=== PATIENT | female | born 1930 | race Asian ===

== ENCOUNTER 2016-04-30 10:00 | Outpatient (CLI) | payer MEDICARE, OTHER, MEDICAID | END 2016-04-30 10:01 | disposition home or self-care (01) | DX: G13.8 Systemic atrophy primarily affecting central nervous system in other diseases classified elsewhere (principal); R53.1 Weakness; Z91.81 History of falling; F33.9 Major depressive disorder, recurrent, unspecified; N39.41 Urge incontinence; I10 Essential (primary) hypertension; Z99.3 Dependence on wheelchair; M25.512 Pain in left shoulder; Z51.5 Encounter for palliative care ==

== ENCOUNTER 2016-05-19 | Outpatient (CLI) | payer MEDICARE, MEDICAID | END 2016-05-19 14:46 | disposition home or self-care (01) ==

== ENCOUNTER 2016-06-23 10:30 | Outpatient (CLI) | payer MEDICARE, MEDICAID | END 2016-06-23 10:31 | disposition home or self-care (01) | DX: Z51.5 Encounter for palliative care (principal); F33.9 Major depressive disorder, recurrent, unspecified; G13.8 Systemic atrophy primarily affecting central nervous system in other diseases classified elsewhere; F03.91 Unspecified dementia, unspecified severity, with behavioral disturbance; M25.512 Pain in left shoulder; H91.90 Unspecified hearing loss, unspecified ear; F41.9 Anxiety disorder, unspecified; R60.9 Edema, unspecified; Z99.3 Dependence on wheelchair; Z66 Do not resuscitate ==

== ENCOUNTER 2016-07-21 10:30 | Outpatient (CLI) | payer MEDICARE, MEDICAID | END 2016-07-21 10:31 | disposition home or self-care (01) | DX: Z51.5 Encounter for palliative care (principal); G13.8 Systemic atrophy primarily affecting central nervous system in other diseases classified elsewhere; F32.9 Major depressive disorder, single episode, unspecified; Z99.3 Dependence on wheelchair; M62.81 Muscle weakness (generalized); M25.512 Pain in left shoulder; H91.90 Unspecified hearing loss, unspecified ear; R05 Cough; F41.9 Anxiety disorder, unspecified; Z66 Do not resuscitate ==

== ENCOUNTER 2016-08-25 10:00 | Outpatient (CLI) | payer MEDICARE, MEDICAID ==
--- NOTE | 2016-08-26 06:38 | CONSULTATION NOTE ---
DATE OF CONSULTATION: 08/25/2016 00:00:00 REQUESTING PROVIDER: Mary Lewis PA-C. TIME OF VISIT: 1010:45. TOPIC: Followup palliative care consult. Thank you, Mary Lewis PA-C, for asking the palliative care consult service to be involved in the care your patient. I am following her related to her depression. She is seen in her home setting, [facility] is [facility] intermediate facility. BRIEF HISTORY OF PRESENT ILLNESS UPDATE: This is an 86-year-old [place] woman who I am seeing relate d to her multisystem atrophy and major depressive disorder. She is wheelchair bound, has limited rang e of motion, particularly in her left shoulder from a past acute injury. She does have lower extremit y weakness, is unable to transfer without maximum assistance. 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 She does have a scooter, so she is able to maneuver independently around the facility. The patient, for the last several days, had increasing symptoms of a viral illness. This has been igor rly rampant in the facility. She does have a cough that is coarse, but nonproductive. It is not impac ting her sleep or impacting her appetite. She has had some intermittent bloody noses with this. She i s using Robitussin with good control. It looks like she has been taking that about 3 times a day. She does not have any fever or chills, just some fatigue. As far as the patient's symptoms of depression, she continues with the complaints about her current s ituation, which of course indeed are valid, living in a prison. She has recently been changed a s far as her room, which had improved things some. She is being supported by the palliative care chap bhavana, as well as a very committed weekly visit from a volunteer, Marie. The patient is somewhat encou raged. She has been working with her [facility] caser. Her perception is she is on a wait ing list at [facility], [facility], but is unclear about the details regardi ng this. SYMPTOM BURDEN: Continues with left shoulder discomfort. Does get exacerbated with transfers. She has used Tylenol intermittently. She is no longer receiving physical therapy, but she does go to exercis e class. She has fluctuating fatigue. Her appetite remains good. She does feel some of breath with he r increased cough. Continues to perceive her overall quality of life as quite poor. CODE STATUS: THE PATIENT IS A DO NOT ATTEMPT RESUSCITATION, COMFORT MEASURES ONLY, ANTIBIOTICS FOR FO CUS OF COMFORT, AND NO MEDICAL TUBE FEEDINGS. BRIEF SOCIAL HISTORY: The patient is now a permanent resident here at the facility. She is coming on a year come this summer. It has continued to be a source of much distress for her. She does have some friends that visit her, but no family support and is estranged from her daughter. REVIEW OF SYSTEMS HEENT: Continues with mild hearing loss, wears her glasses. Denies swallowing or choking. CARDIOVASCULAR: No chest pain. RESPIRATORY: Now with moist cough. It is controlled per her report with the Robitussin. GASTROINTESTINAL: Does report some constipation. She is anxious for me to put any more aggressive bow el program in. I did remind her, she does have a house bowel program and can ask for some medication as needed. GENITOURINARY: She is continent, but is dependent on staff to toilet her. MUSCULOSKELETAL: As noted above. INTEGUMENTARY: Intermittent skin issues, currently no complaints. NEUROLOGIC: Alert and oriented x3. Her voice is somewhat soft today, more difficult to hear. Unclear if this is related to her viral illness or her disease process. PSYCHIATRIC: Underlying depression and intermittent anxiety. ENDOCRINE: No history of hypothyroidism or diabetes. HEMATOLOGIC/IMMUNOLOGIC: Now presents with a viral upper respiratory infection. PHYSICAL EXAMINATION GENERAL APPEARANCE: She does appear slightly fatigued and somewhat more pale than her norm. She is in termittently making good eye contact. I do have someone with me today. I am unclear if this is interf ering with her willingness to be open. There was no tearfulness during our visit. EYES: Slight periorbital edema. ENT: She does have a few missing teeth. NECK: Trachea is midline. No lymphadenopathy noted. RESPIRATORY: Her breath sounds are diminished, but clear, though she does have a moist cough noted. VITAL SIGNS: Her temperature is 97.4, O2 saturation 99%, pulse is 74, blood pressure 112/80. ABDOMEN: Rounded and soft, nontender to palpation. She does have bowel tones. SKIN: No lower extremity edema. 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 EXTREMITIES: She is unable to move without maximum assist her right leg. Left with minor assist. She does have limited range of motion and pain in her left shoulder. PALLIATIVE CARE DISCUSSION: Who is present, myself, Stephania SMART, and the patient. Did review her current stressors and concerns. She has met with Jessica recently and I will follow up with her as far as a long-term plan if the patient is considering moving or not. She did seem, despite feeling poorly , a little bit more positive today. She had really much enjoyed Marie's visit on Tuesday. She is going to be on vacation for a couple of months and so introduced a back-up volunteer who has a minda shelly le dog named Holger. She seems somewhat fascinated with this and enjoyed their time and picnic in the courtyard. IMPRESSION: This is a complex 86-year-old Bhut[place] woman with multisystem atrophy who is somewhat sta ble in her decline, but remains dependent. She presents today with the sequela of a viral illness. Do es seem to be improving. She does have major depressive disorder, this appears stable at this time. RECOMMENDATIONS/COUNSELING DONE 1. Multisystem atrophy. She has not been using her lift chair. She does need maximum assist with this , I had encouraged her to off load her pressure points and get into the chair a couple of times a day . She does have many barriers related to this, including needing to ask for help. 2. Major depressive disorder without any psychotic behaviors. She has been adherent to her mirtazapin e and compliant with the plan. She is using her support people and attempts are being made to break u p her isolation. 3. Advanced care planning. The patient has a POLST in place. Will follow up with her outpatient case manager to see what currently is in the works for meterman planning. 4. Upper respiratory viral illness. The patient does seem to be improving. Lemuel is working for symptom management. She does appear somewhat dry. I did encourage her to push fluids a little bit mor e aggressively, particularly in light of her current illness. TIME SPENT: 45 minutes with greater than 50% of this done in counseling and coordination of care, fol lowup with facility staff, and anticipatory guidance. Her weight today was 160.2. JOB #: [id number] EXT JOB #:[id number]
== END 2016-08-25 10:01 | disposition home or self-care (01) ==
LOC: PC 10:00
PROVIDERS: ATTEND Nurse Practitioner Adult Health
DX: Z51.5 Encounter for palliative care (principal); G13.8 Systemic atrophy primarily affecting central nervous system in other diseases classified elsewhere; F32.9 Major depressive disorder, single episode, unspecified; J06.9 Acute upper respiratory infection, unspecified; Z99.3 Dependence on wheelchair; R53.1 Weakness; R04.0 Epistaxis; Z66 Do not resuscitate; K59.00 Constipation, unspecified; F41.9 Anxiety disorder, unspecified
CPT/HCPCS: 99310

== ENCOUNTER 2016-09-30 08:00 | Outpatient (CLI) | payer MEDICARE, MEDICAID ==
[2016-10-01 14:59] LABS: BASOPHILS # (AUTO) 0.1 10^3/uL (0.0-0.1); BASOPHILS % (AUTO) 0.9 %; EOSINOPHILS # (AUTO) 0.5 10^3/uL (0.0-0.7); EOSINOPHILS % (AUTO) 5.9 %; HCT - HEMATOCRIT 33.6 % (37.0-47.0); LYMPHOCYTES # (AUTO) 1.3 10^3/uL (1.5-3.5); LYMPHOCYTES % (AUTO) 15.7 %; MEAN CORPUSCULAR HEMOGLOBIN 28.3 pg (27.0-31.0); MEAN CORPUSCULAR HGB CONC 32.8 g/dL (32.0-36.0); MEAN CORPUSCULAR VOLUME 86.4 fL (81.0-99.0); MEAN PLATELET VOLUME 8.9 fL (7.9-10.8); MONOCYTES # (AUTO) 0.5 10^3/uL (0.0-1.0); MONOCYTES % (AUTO) 5.5 %; NEUTROPHILS # (AUTO) 6.2 10^3/uL (1.5-6.6); RED BLOOD COUNT 3.89 10^6/uL (4.20-5.40); RED CELL DISTRIBUTION WIDTH 14.5 % (12.0-15.0); UNCORRECTED WHITE BLOOD COUNT 8.6 x10^3/uL; WHITE BLOOD COUNT 8.6 x10^3/uL (4.8-10.8)
[2016-10-01 15:13] LABS: ALBUMIN/GLOBULIN RATIO 1.1 (1.0-2.2); BILIRUBIN,TOTAL 0.4 mg/dL (0.2-1.0); BUN - BLOOD UREA NITROGEN 44 mg/dL (6-20); CALCIUM 9.7 mg/dL (8.5-10.3); CARBON DIOXIDE - CO2 25 mmol/L (21-32); CHLORIDE 103 mmol/L (101-111); CHOL/HDL RATIO 5.1 (<4.4); CHOLESTEROL 216 mg/dL; CREATININE 1.8 mg/dL (0.4-1.0); GFR - MDRD 27 (>89); GLUCOSE 189 mg/dL (70-100); HDL CHOLESTEROL 42 mg/dL; LDL/HDL RATIO 2.5 (<4.4); POTASSIUM 4.6 mmol/L (3.5-5.0); SODIUM 138 mmol/L (135-145); TOTAL PROTEIN 7.7 g/dL (6.7-8.2); TRIGLYCERIDES 341 mg/dL; VLDL CHOLESTEROL 68 mg/dL
[2016-10-02 14:43] LABS: HEMOGLOBIN A1C 0.51 g/dL
== END 2016-09-30 23:59 | disposition home or self-care (01) ==
LOC: LAB.R 08:00
PROVIDERS: ATTEND Physician Assistant Medical
DX: R79.89 Other specified abnormal findings of blood chemistry (principal); E78.5 Hyperlipidemia, unspecified; R68.89 Other general symptoms and signs; R73.9 Hyperglycemia, unspecified
CPT/HCPCS: 80053; 80061; 83036; 85025

== ENCOUNTER 2016-10-13 10:30 | Outpatient (CLI) | payer MEDICARE, MEDICAID ==
--- NOTE | 2016-10-13 17:27 | PROVIDER PROGRESS NOTE ---
Palliative Care Follow Up - Referral Referring Provider: Mary Lewis PA-C Time of Visit: 10:30-11:15 Referral setting: Long Term Facility - Information Sources Records Reviewed: RN notes reviewed, Old records reviewed, Other (Case Conference notes from [employer]) Exam limitations: Clinical condition (remains fairly perseverated in "her story ", does have some health literacy issues regarding culture/language barriers) - History of Present Illness Update Brief HPI Update: This is an 86 year old filipina woman who presents with major depressive disorder, now with a suicidal gesture. She had wrapped the cord from window blinds around her neck, more per her report as an act of desperation "I am just tired of living" but was found by staff. Has had not further thoughts of action , or attempts noted. She continues to be unhappy at [facility], feels it is unending, and though has actually fairly robust support given what is available , dislikes being dependent and feels very lonely and isolated. Case conference was done, Palliative Care [employer] attended as well as casework Jessica Hendricks and Daya Batista her outreach mental health counselor who has been seeing her on regular basis and [facility] clinical staff. She still has multisystem atrophy, without significant progression some increase in lower extremity weakness, has been wheelchair bound for several year , more difficult transfers. Fine motor movements of hands more difficult. No trouble with swallowing, no incontinence other than if has to wait to long to toilet. She reports continues left shoulder discomfort, does get some relief with intermittent tylenol. Am concerned with labs, if not receiving great benefit from Mobic, will trial off and use alternative. She does perceive she has increase RLS symptoms as well. Social History - Living Situation Living arrangement: long-term Living Situation: Other (staff; patient has been there over a year, continues to have problems with adjusting, finding it very difficult) Medications/Allergies - Medications Home Medications: Ambulatory Orders Medication Instructions Recorded Confirmed Cholecalciferol (Vitamin D3) 2,000 unit PO DAILY 01/17/15 10/13/16 [Vitamin D-3] Losartan [Cozaar] 100 mg PO DAILY 01/17/15 10/13/16 Multivit-Min/FA/Lycopen/Lutein 1 each PO DAILY 01/17/15 10/13/16 [Centrum Silver Tablet] Triamterene/Hydrochlorothiazid 1 tab PO DAILY 04/29/15 10/13/16 [Maxzide 37.5 mg-25 mg Tablet] Acetaminophen 1,000 mg PO Q6HR PRN MDD 3000 mg 10/13/16 10/13/16 Calcium Carbonate [Tums (Calcium 500 mg PO TID PRN 10/13/16 10/13/16 Carbonate 500mg)] Cetirizine HCl 10 mg PO BID 10/13/16 10/13/16 Dry Eye Relief Drops 2 drops TOP BID 10/13/16 House Bowel Program 1 tab PO PRN 10/13/16 Meloxicam [Mobic] 7.5 mg PO BID 10/13/16 10/13/16 Mirtazapine 30 mg PO QPM 10/13/16 10/13/16 Pramipexole Di-HCl [Mirapex] 0.125 mg PO QPM 10/13/16 10/13/16 guaiFENesin/DEXTROMETHORPHAN 10 mg PO Q4HR PRN 10/13/16 10/13/16 [Robitussin Dm] - Allergies Allergies/Adverse Reactions: Allergies Allergy/AdvReac Type Severity Reaction Status Date / Time alendronate sodium Allergy Unknown Unknown Verified 06/04/15 22:37 lisinopril Allergy Unknown Unknown Verified 06/04/15 22:36 codeine AdvReac Intermediate Emesis Verified 06/04/15 20:45 Review of Systems - Constitutional Constitutional: reports: Fatigue - Eyes Eyes: reports: Corrective lenses - Ears, Nose & Throat Ears, Nose & Throat: reports: Hearing loss (mild). denies: Nasal congestion, Dental pain - Cardiovascular Cariovascular: denies: Chest pain, Edema, Exertional dyspnea - Respiratory Respiratory: reports: Cough (occasional). denies: Wheezing, SOB at rest, SOB with exertion - Gastrointestinal Gastrointestinal: reports: Reflux/heartburn (occasional). denies: Constipation , Diarrhea, Black stools, Bloody stools - Genitourinary Genitourinary: denies: Dysuria, Frequency, Urgency, Incontinence - Musculoskeletal Musculoskeletal: reports: Muscle pain, Stiffness, Limited range of motion ( right shoulder, LE without purposeful movement) - Integumentary Integumentary: reports: Rash (reports has severe itching, improved powder helping), Dryness - Neurological Neurological: reports: Focal weakness, Numbness, Other (Wheelchair bound) - Psychiatric Psychiatric: reports: Depression, Anxiety. denies: Suicidal, Delusions, Hallucinations - Endocrine Endocrine: denies: Intolerance to cold, Intolerance to heat - Hematologic/Lymphatic Hematologic/Lymphatic: reports: Anemia. denies: Bruising, Lymphadenopathy, Recurrent infections - All Other Systems All Other Systems: reports: Reviewed and negative Physical Examination - Vital Signs Temperature: 97.6 C Pulse Rate: 78 Respiratory Rate: 18 O2 Saturation: 97 Blood Pressure: 112/72 - Physical Exam General Appearance: positive: No acute distress, Alert Eyes Bilateral: positive: Normal inspection ENT: positive: No signs of dehydration. negative: Oral lesions Neck: positive: Trachea midline Respiratory: positive: Breath sounds nml Cardiovascular: positive: Regular rate & rhythm Abdomen: positive: Non-tender, Nml bowel sounds Skin: negative: Puritis, Rash Extremities: negative: Pedal edema Neurologic/Psychiatric: positive: Oriented x3, Weakness, Depressed mood/affect ( no significant presentation increased in depressive symptoms) Palliative Care - POLST Patient has POLST: Yes POLST Status: DNR, Comfort Measures Pain: Pain worsening, Location (right shoulder, reports does respond to apap, using about once a day), Pattern (Having some increase in RLS symptoms, fluctuates) Drowsiness: None Nausea: None Anxiety: None Dyspnea: None Anorexia: None Insomnia: Sleeps well Constipation: No Feelings of wellbeing/Perceived Quality of Life: Worsening Performance Status: Patient remains dependent for transfers, ADLs, can use motorized w/c for mobility in facililty and does go to dining room. Does feed self. - Palliative Care Discussion: Discussion at length again regarding perceived quality of life, continues to admit she can be a "stubborn woman" stuck in her unhappiness. Denies currently suicidal ideation, no plan to further attempt, reviewed support team available and would be serious refection on them as well. Counseling on depression, willing to try another had many complaints about SSRI previously, will try another atypical, agreed to trial for two weeks before resists. Has been compliant with mirtazipine, has had weight gain so has been a barrier for acceptance, though was started on originally for weight loss too. Support team visiting regularly, able to acknowledge care issues most likely not to improve with limitations of setting. "I am tired of living", not tearful, voice modulated, made good eye contact, engaged in conversation and laughing appropriately when redirected. Results - Lab Results Lab results reviewed: Yes Lab and Imaging Results: HCT 33.6%;BUN 44;Creatine 1.8; GGFR 27 Impression and Recommendations - Palliative Care Impression: This is a 86 year old woman with major depressive disorder, now with suicidal gesture, improved mood per report. Patient with multiple complaints, focused on pain/depression/ and goals of care today. Recommendations/Counseling Done: 1. Major depressive disorder. After much discussion, weighing benefits and burdens, will discontinue mirtazipine and try venlafaxine XR, will see if impact on anxiety/perserveration. Patient in agreement after education, included in decision making to help with compliance. 2. Right shoulder pain. Given labs, will discontinue Mobic (omeprazole had been stopped at some point so no stomach protection), patient perception is APAP helpful, had wanted to schedule TID, but patient chose BID, will let me know if wants differently. 3. Pruitis. No rash observed, reports improved. 4. Advanced Care Planning, patient remains impatient for her decline, though pointed out if worsened would be more dependeent, currently has many support persons/activities. Message left regarding further follow up if alternative living being pursued. Thank you Mary Lewis for having the palliative care consult service involved in your patient's care, will continue to follow. Time Spent: 45 minutes with greater than 50% of done in counseling for depression and treatment, pain and anticipatory guidance.
== END 2016-10-13 10:31 | disposition home or self-care (01) ==
LOC: PC 10:30
PROVIDERS: ATTEND Nurse Practitioner Adult Health
DX: Z51.5 Encounter for palliative care (principal); F32.9 Major depressive disorder, single episode, unspecified; M25.511 Pain in right shoulder; L29.9 Pruritus, unspecified; R45.851 Suicidal ideations; G13.8 Systemic atrophy primarily affecting central nervous system in other diseases classified elsewhere; R53.1 Weakness; Z99.3 Dependence on wheelchair; R05 Cough; R12 Heartburn; M79.1 Myalgia; D64.9 Anemia, unspecified; Z66 Do not resuscitate
CPT/HCPCS: 99310

== ENCOUNTER 2016-10-21 15:40 | Outpatient (CLI) | payer MEDICARE, MEDICAID ==
--- NOTE | 2016-10-21 15:47 | PROVIDER PROGRESS NOTE ---
Palliative Care Follow Up - Referral Referring Provider: MARILU Valencia Time of Visit: 14:15 Referral setting: [facility] - Information Sources History obtained from: Patient Exam limitations: No limitations - History of Present Illness Update Brief HPI Update: This is an 86-year-old Stateless woman with multisystem atrophy and major depressive disorder. She is wheelchair bound with limited range of motion and lower extremity weakness, and is unable to transfer without maximum assistance. Earlier this week she complained of pain in right lower extremity, and radiographic imaging was negative. I followed up with her today to check on her lower extremities. She reports pain has lessened, but her feet feel shaky. Not numb, tingly or pins and needles. She normally sleeps well but sometimes can t sleep from what sounds like restless leg syndrome symptoms. She is currently taking pramipexole. The aids rub her feet with something, possibly Vicks vapo- rub, and she really enjoys this. She has repeatedly stated, in the past, that she is not happy in this facility, but today she did not bring this up. She does not feel any worsening or improvement of her mental outlook, but seemed introspective about her disease and current physical limitations, stating I miss everything I used to do, for instance, being able to get up and change the fan when she wants to. She stated at one point that sometimes she gets angry at herself about that (not being able to do what she used to). She values her independence and doesnt like having to depend on others. She spoke very positively about Jessica, her sausage mixer And Daya her counsellor, saying, I depend on them they are nice people. Jessica helps her with her handwriting, which is getting difficult for her. Her eyes lit up when I mentioned Neeru (Marie?) her volunteer, who should be returning from vacation this month. We spoke of how she came to live here with her [place] , arriving here on in 1964. They also lived in [place] for a time. Social History - Living Situation Living arrangement: skilled nursing Medications/Allergies - Medications Home Medications: Ambulatory Orders Medication Instructions Recorded Confirmed Cholecalciferol (Vitamin D3) 2,000 unit PO DAILY 01/17/15 10/21/16 [Vitamin D-3] Losartan [Cozaar] 100 mg PO DAILY 01/17/15 10/21/16 Multivit-Min/FA/Lycopen/Lutein 1 each PO DAILY 01/17/15 10/21/16 [Centrum Silver Tablet] Triamterene/Hydrochlorothiazid 1 tab PO DAILY 04/29/15 10/21/16 [Maxzide 37.5 mg-25 mg Tablet] Acetaminophen 1,000 mg PO BID MDD 3000 mg 10/13/16 10/21/16 Calcium Carbonate [Tums (Calcium 500 mg PO TID PRN 10/13/16 10/21/16 Carbonate 500mg)] Cetirizine HCl 10 mg PO BID 10/13/16 10/21/16 Dry Eye Relief Drops 2 drops TOP BID 10/13/16 10/21/16 House Bowel Program 1 tab PO PRN 10/13/16 Pramipexole Di-HCl [Mirapex] 0.125 mg PO QPM 10/13/16 10/21/16 guaiFENesin/DEXTROMETHORPHAN 10 mg PO Q4HR PRN 10/13/16 10/21/16 [Robitussin Dm] Venlafaxine ER [Effexor ER] 37.5 mg PO DAILY 10/21/16 10/21/16 - Allergies Allergies/Adverse Reactions: Allergies Allergy/AdvReac Type Severity Reaction Status Date / Time alendronate sodium Allergy Unknown Unknown Verified 06/04/15 22:37 lisinopril Allergy Unknown Unknown Verified 06/04/15 22:36 codeine AdvReac Intermediate Emesis Verified 06/04/15 20:45 Review of Systems - Cardiovascular Cariovascular: denies: Chest pain - Respiratory Respiratory: denies: Cough, SOB with exertion - Gastrointestinal Gastrointestinal: denies: Constipation - Genitourinary Genitourinary: denies: Dysuria - Musculoskeletal Musculoskeletal: reports: Muscle weakness (lower extremities) Physical Examination - Vital Signs Temperature: 97.4 C Pulse Rate: 83 O2 Saturation: 99 Blood Pressure: 132/68 - Physical Exam General Appearance: positive: No acute distress, Alert Eyes Bilateral: positive: EOMI, No lid inflammation, Conjunctivae nml ENT: positive: No signs of dehydration Neck: positive: Trachea midline Respiratory: positive: Chest non-tender, No respiratory distress, Breath sounds nml Cardiovascular: positive: Regular rate & rhythm Skin: positive: No symptoms Extremities: positive: Other (ankle edema +1) Neurologic/Psychiatric: positive: Oriented x3, CN's nml (2-12), Motor nml, Sensation nml, Mood/affect nml Palliative Care - POLST Patient has POLST: Yes POLST Status: Comfort Measures Pain: Pain unchanged Drowsiness: None Nausea: None Anxiety: None Dyspnea: None Anorexia: None Insomnia: Other Constipation: No Feelings of wellbeing/Perceived Quality of Life: No change Performance Status: Previous level of function prior to this episode: LE weakness, requires extensive help with transfers Current level of functioning: Some increased weakness in lower extremities; some improvement during the week. No complaints about shoulder pain today Palliative Care Performance Status: 50% - Palliative Care Discussion: Who is present: The patient and myself Surrogate decision maker: Natasha Espino Patient understanding of the illness: She understands multisystem atrophy has no cure and that she will get progressively weaker Most important goals: Retaining as much independence as possible Patient concerns: Shakiness and increased weakness in her feet. Losing her independence. Impression and Recommendations - Palliative Care Impression: This is a complex 86-year-old woman with multisystem atrophy who is gradually declining while retaining as much independence as she can. She also has major depressive disorder which appears stable with the current medication regimen. Recommendations/Counseling Done: 1. Pain/weakness R foot: Improved after a single acute episode of increased weakness this week. Monitor and consider increasing pramipexole if it reoccurs or RLS symptoms increase. 2. Major depressive disorder: Currently stable on venlafaxine 37.5 daily. Revisit in 2-3 weeks and titrate if indicated. She has a good support system in place in the facility and expresses gratitude for them. Provided encouragement and support. 3. Chronic shoulder pain: Adequately controlled at present with Tylenol extra strength four times a day as needed. Time Spent: 45 minutes with greater than 50% of this done in counseling and coordination of care, assessment of pain, and discussing goals of care and symptom management.
== END 2016-10-21 15:41 | disposition home or self-care (01) ==
LOC: PC 15:40
PROVIDERS: ATTEND Nurse Practitioner
DX: Z51.5 Encounter for palliative care (principal); M79.671 Pain in right foot; F32.9 Major depressive disorder, single episode, unspecified; G13.8 Systemic atrophy primarily affecting central nervous system in other diseases classified elsewhere; Z99.3 Dependence on wheelchair; M25.519 Pain in unspecified shoulder; R53.1 Weakness; Z66 Do not resuscitate
CPT/HCPCS: 99310

== ENCOUNTER → 2016-11-02 | Outpatient (CLI) | payer MEDICARE, MEDICAID ==
[2016-11-02 10:57] LABS: BASOPHILS # (AUTO) 0.1 10^3/uL (0.0-0.1); BASOPHILS % (AUTO) 0.7 %; EOSINOPHILS # (AUTO) 0.5 10^3/uL (0.0-0.7); EOSINOPHILS % (AUTO) 6.5 %; HCT - HEMATOCRIT 33.2 % (37.0-47.0); HGB - HEMOGLOBIN 10.9 g/dL (12.0-16.0); LYMPHOCYTES # (AUTO) 1.3 10^3/uL (1.5-3.5); LYMPHOCYTES % (AUTO) 15.6 %; MEAN CORPUSCULAR HEMOGLOBIN 28.3 pg (27.0-31.0); MEAN CORPUSCULAR HGB CONC 32.9 g/dL (32.0-36.0); MEAN CORPUSCULAR VOLUME 86.2 fL (81.0-99.0); MEAN PLATELET VOLUME 8.1 fL (7.9-10.8); MONOCYTES # (AUTO) 0.4 10^3/uL (0.0-1.0); MONOCYTES % (AUTO) 4.9 %; NEUTROPHILS % (AUTO) 72.3 %; RED BLOOD COUNT 3.85 10^6/uL (4.20-5.40); RED CELL DISTRIBUTION WIDTH 14.4 % (12.0-15.0); UNCORRECTED WHITE BLOOD COUNT 8.3 x10^3/uL; WHITE BLOOD COUNT 8.3 x10^3/uL (4.8-10.8)
[2016-11-02 11:17] LABS: IRON 53 ug/dL (28-170); TOTAL IRON BINDING CAPACITY 336 ug/dL (250-450); TRANSFERRIN 240 mg/dL (192-382)
[2016-11-02 11:33] LABS: FERRITIN 71.4 ng/mL (11.0-306.8)
== END ==
LOC: LAB.R 08:00
DX: D64.9 Anemia, unspecified (principal); R68.89 Other general symptoms and signs
CPT/HCPCS: 82607; 82728; 82746; 83540; 84466; 85025

== ENCOUNTER 2016-11-05 09:45 | Outpatient (CLI) | payer MEDICARE, MEDICAID ==
--- NOTE | 2016-11-05 17:47 | PROVIDER PROGRESS NOTE ---
Palliative Care Follow Up - Referral Referring Provider: Mary Lewis PA-C Time of Visit: [id number] Referral setting: Detention Facility Referral Reason: Depression - Information Sources Records Reviewed: RN notes reviewed History obtained from: Patient Exam limitations: No limitations - History of Present Illness Update Brief HPI Update: This is a 86 year old [place] woman who I have been following shelter for depression. She had a "suicidal gesture' related to her ongoing despair about her current living situation. 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 She is losing upper extremity strength as well, more fine motor in impact of ADLs. As a result, I did change her antidepressant from mirtazipine, to venalfaxine. Unfortunately this has impacted her sleep, I am not surprised as mirtazipine is helpful at night. She had an acute episode of LE leg pain, no trauma, no injury, as a result got an xray which was negative. She reports LE pain has improved, but describes symptoms of RLS with "jumpy" and sharp stabbing pains at night. Currently on exam was not wearing her brace on her RLE, she reports she is usually compliant with this. Her other main complaint is her left shoulder pain, limited range of motion, and achy feeling. Scheduling the BID APAP has not made any noticeable improvement. She complains of rash/pruritis upper back, had received benedryl cream order from PCP, but diffuse pink rash with scratch pope noted. Social History - Living Situation Living arrangement: half-way Support System: Patient has Palliative Care [facility] meeting weekly; Counselor Daya 2-3 times a month; [facility] outreach 2-3 times a month; volunteer from Palliative care 2-4 times a month. Estranged from daughter many years Medications/Allergies - Medications Home Medications: Ambulatory Orders Medication Instructions Recorded Confirmed Cholecalciferol (Vitamin D3) 2,000 unit PO DAILY 01/17/15 10/21/16 [Vitamin D-3] Losartan [Cozaar] 100 mg PO DAILY 01/17/15 10/21/16 Multivit-Min/FA/Lycopen/Lutein 1 each PO DAILY 01/17/15 10/21/16 [Centrum Silver Tablet] Triamterene/Hydrochlorothiazid 1 tab PO DAILY 04/29/15 10/21/16 [Maxzide 37.5 mg-25 mg Tablet] Acetaminophen 1,000 mg PO BID MDD 3000 mg 10/13/16 10/21/16 Calcium Carbonate [Tums (Calcium 500 mg PO TID PRN 10/13/16 10/21/16 Carbonate 500mg)] Cetirizine HCl 10 mg PO BID 10/13/16 10/21/16 Dry Eye Relief Drops 2 drops TOP BID 10/13/16 10/21/16 House Bowel Program 1 tab PO PRN 10/13/16 Pramipexole Di-HCl [Mirapex] 0.125 mg PO QPM 10/13/16 10/21/16 guaiFENesin/DEXTROMETHORPHAN 10 mg PO Q4HR PRN 10/13/16 10/21/16 [Robitussin Dm] Venlafaxine ER [Effexor ER] 37.5 mg PO DAILY 10/21/16 10/21/16 - Allergies Allergies/Adverse Reactions: Allergies Allergy/AdvReac Type Severity Reaction Status Date / Time alendronate sodium Allergy Unknown Unknown Verified 06/04/15 22:37 lisinopril Allergy Unknown Unknown Verified 06/04/15 22:36 codeine AdvReac Intermediate Emesis Verified 06/04/15 20:45 Review of Systems - Constitutional Constitutional: reports: Fatigue, Weakness - Eyes Eyes: reports: Corrective lenses - Ears, Nose & Throat Ears, Nose & Throat: reports: Hearing loss (mild) - Cardiovascular Cariovascular: denies: Palpitations, Chest pain, Edema, Orthopnea - Respiratory Respiratory: denies: Cough, Sputum production - Gastrointestinal Gastrointestinal: denies: Abdominal pain, Constipation, Nausea, Bloating - Genitourinary Genitourinary: denies: Incontinence (often has to weight to toilet though) - Musculoskeletal Musculoskeletal: reports: Muscle pain, Stiffness, Limited range of motion, Muscle weakness - Integumentary Integumentary: reports: Rash, Pruritis, Dryness - Neurological Neurological: reports: General weakness, Other (wheelchair bound; RLS exacerbated symptoms) - Psychiatric Psychiatric: reports: Depression (feels mood is not worsened; voice modulated good eye contact), Anxiety. denies: Suicidal, Delusions, Hallucinations - Endocrine Endocrine: reports: Other (no history diabetes or thyroid) - Hematologic/Lymphatic Hematologic/Lymphatic: reports: Anemia (has had recent labs) - All Other Systems All Other Systems: reports: Reviewed and negative Physical Examination - Vital Signs Temperature: 97.5 C Pulse Rate: 64 Respiratory Rate: 18 O2 Saturation: 99 Blood Pressure: 128/72 - Physical Exam General Appearance: positive: No acute distress Eyes Bilateral: positive: Normal inspection ENT: positive: ENT inspection nml, No signs of dehydration. negative: Oral lesions Neck: positive: No JVD, Trachea midline, Stiff neck Respiratory: positive: Breath sounds nml Cardiovascular: positive: Regular rate & rhythm Abdomen: positive: Nml bowel sounds, No distention Skin: positive: Dryness, Puritis, Rash Extremities: positive: No pedal edema Neurologic/Psychiatric: positive: Oriented x3, Mood/affect nml Palliative Care - POLST Patient has POLST: Yes POLST Status: DNR, Comfort Measures Pain: Pain worsening, Location (lower extremities; left shoulder) Drowsiness: Mild (1-3) Nausea: None Anxiety: None Dyspnea: None Anorexia: None (reports eating smaller portions) Insomnia: Sleeps poorly (decreased sleep with change of medications) Constipation: No Feelings of wellbeing/Perceived Quality of Life: No change Performance Status: Patient dependent for bathing, transfers to commode and toileting assist. Can feed self and call for help if needed - Palliative Care Discussion: Unfortunately staff had not notified Laurie of the change in plans so thought I had "forgot" last week. Showed her fax I sent, and called this am to let them know I was coming was not picked up. Reviewed again how to contact me, is unable to manipulate or answer her cell phone. She reports she is doing better, is more uncomfortable with leg/shoulder pain. Had her gratitude journal out, able to identify things that were positively going on for her. She appears a little more sedated on the medication with some fatigue, but otherwise tolerating well. Counseling and support provided regarding medication management of symptoms. Results - Lab Results Lab results reviewed: Yes Impression and Recommendations - Palliative Care Impression: This is a 86 year old woman, in a very difficult situation with depressed feelings regarding loss of independence and current living situation. She denies suicidality, worsening mood, and able to participate in exam with good eye contact, modulated voice, and appears to have an attitude of resignation today. Increase symptoms of RLS/insomnia, I suspect impacted by the change in medications. Recommendations/Counseling Done: 1. Restless Leg Syndrome. Will increase pramipexole to 0.25 mg at bedtime, may assist with sleep as well, since symptom that is keeping her from sleeping, will wait before adding another medication for sleep. 2. Rash, unknown etiology upper back. Will try tramcinolone topical to upper back rash 0.1% cream, make time limited of two weeks. 3. Left shoulder pain. Trialed Meloxicam with patient does not perceived helped , nor scheduled APAP, will leave for now. Discussed what most helpful, patient perceives massage. Agreed would try topical Voltaren then she agreed to three times a day. Will evaluate in a couple of weeks. 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 Patient currently on venlafexine 37.5 mg, having some mild sedation, will leave at current dosing for now, patients depressive symptoms appear stable and patient feels currently improved. Reviewed support receiving, has decided not to go to weekly mass for a while, found it to difficult to schedule around. Wrote in gratefulness journal. 5. Advanced care planning. POLST in place, continues to decline very slowly, current plan is to stay a SNF, open to changing setting. Time Spent: 45 minutes with greater than 50% done in counseling and addressing symptoms, coordination of care with clincial staff and team.
== END 2016-11-05 09:46 | disposition home or self-care (01) ==
LOC: PC 09:45
PROVIDERS: ATTEND Nurse Practitioner Adult Health
DX: Z51.5 Encounter for palliative care (principal); G13.8 Systemic atrophy primarily affecting central nervous system in other diseases classified elsewhere; G25.81 Restless legs syndrome; R21 Rash and other nonspecific skin eruption; M25.512 Pain in left shoulder; F32.9 Major depressive disorder, single episode, unspecified; Z99.3 Dependence on wheelchair; R53.1 Weakness; M79.1 Myalgia; D64.9 Anemia, unspecified; Z66 Do not resuscitate
CPT/HCPCS: 99310

== ENCOUNTER 2016-11-19 13:00 | Outpatient (CLI) | payer MEDICARE, MEDICAID ==
--- NOTE | 2016-11-19 15:12 | PROVIDER PROGRESS NOTE ---
Palliative Care Follow Up - Referral Referring Provider: Mary Lewis PA-C Time of Visit: 13:00 Referral setting: Senior Living Facility ([facility]) - Information Sources History obtained from: Patient, Caregiver (Nursing staff) Exam limitations: No limitations - History of Present Illness Update Brief HPI Update: This is an 86-year-old Syrian woman with multisystem atrophy and major depressive disorder. She is wheelchair bound with limited range of motion and lower extremity weakness, and is unable to transfer without maximum assistance. She has been followed by Palliative Care long-term for depression. Today as I entered her room her first words were, I want to , right now. She was in a despairing mood, and reiterated this thought repeatedly, along with comments such as I am helpless, and I cant do anything for myself, Get me poison, I want to . She acknowledges that she stays mostly in her room and does not go out because she does not like the activities. She also said she does not talk to anyone because people do not like her. She was not easily redirected, and she was persistent in stating that she does not want to live like this, that it can take an hour for someone to respond to the call light, she is helpless. She does not have a plan, and did not make any suicidal gestures. Some of her complaints are those she has expressed before, about pushing the call light and waiting an hour. She did acknowledge that the people here are nice, but the good ones go away. I acknowledged her frustrations and emotions, and offered support and empathy. She allowed me to open her gratitude book and read some of the passages and to add one of my own. By the end of the visit she appeared calmer and did thank me for talking with her. I spoke to her about making some medication adjustments, and I explained what each one was for, as well as common side effects (per her request). She does not want increase either the venlafaxine or the pramipexole at this time, and we agreed to maintain the current dosage and monitor how she feels for the next week or two. She has not complained of the pain in her leg, or back, and said she is sleeping well generally, but sometimes has problems sleeping. She does admit to having a good appetite, and her weights show she has remained between 155-160 lbs since June. She is currently 156.6 lbs. She did state at one point that if she quit eating, then she could . Social History - Living Situation Living arrangement: [facility] Support System: Patient has Palliative Care Terrapin Fisher meeting weekly; Counselor Daya 2-3 times a month; [facility] outreach 2-3 times a month; volunteer from Palliative Care 2-4 times a month. Estranged from daughter for many years. Medications/Allergies - Medications Home Medications: Ambulatory Orders Medication Instructions Recorded Confirmed Cholecalciferol (Vitamin D3) 2,000 unit PO DAILY 01/17/15 11/19/16 [Vitamin D-3] Losartan [Cozaar] 100 mg PO DAILY 01/17/15 11/19/16 Multivit-Min/FA/Lycopen/Lutein 1 each PO DAILY 01/17/15 11/19/16 [Centrum Silver Tablet] Triamterene/Hydrochlorothiazid 1 tab PO DAILY 04/29/15 11/19/16 [Maxzide 37.5 mg-25 mg Tablet] Acetaminophen 500 mg PO BID MDD 3000 mg 10/13/16 11/19/16 Calcium Carbonate [Tums (Calcium 500 mg PO TID PRN 10/13/16 11/19/16 Carbonate 500mg)] Cetirizine HCl 10 mg PO BID 10/13/16 11/19/16 Dry Eye Relief Drops 2 drops TOP BID 10/13/16 11/19/16 House Bowel Program 1 tab PO PRN 10/13/16 Pramipexole Di-HCl [Mirapex] 0.25 mg PO QPM 10/13/16 11/19/16 guaiFENesin/DEXTROMETHORPHAN 10 mg PO Q4HR PRN 10/13/16 11/19/16 [Robitussin Dm] Venlafaxine ER [Effexor ER] 37.5 mg PO DAILY 10/21/16 11/19/16 Acetaminophen 500 mg PO Q6H PRN MDD 3000mg 11/19/16 11/19/16 - Allergies Allergies/Adverse Reactions: Allergies Allergy/AdvReac Type Severity Reaction Status Date / Time alendronate sodium Allergy Unknown Unknown Verified 06/04/15 22:37 lisinopril Allergy Unknown Unknown Verified 06/04/15 22:36 codeine AdvReac Intermediate Emesis Verified 06/04/15 20:45 Review of Systems - Constitutional Constitutional: reports: Chills, Night sweats. denies: Poor appetite - Cardiovascular Cariovascular: reports: Chest pain (one episode CP this morning for several minutes; burping alleviated it) - Respiratory Respiratory: denies: Cough, SOB at rest, SOB with exertion - Gastrointestinal Gastrointestinal: denies: Abdominal pain - Genitourinary Genitourinary: denies: Dysuria, Frequency - Integumentary Integumentary: denies: Rash - Psychiatric Psychiatric: reports: Other (Denies depression but states "I want to .") Physical Examination - Vital Signs Temperature: 98.4 C Pulse Rate: 76 O2 Saturation: 97 Blood Pressure: 125/60 - Physical Exam General Appearance: positive: Moderate distress Eyes Bilateral: positive: EOMI, Conjunctivae nml, No scleral icterus ENT: positive: No signs of dehydration Neck: positive: No JVD, Trachea midline Cardiovascular: positive: Regular rate & rhythm, No murmur Abdomen: positive: Non-tender, Nml bowel sounds Skin: positive: No symptoms Extremities: positive: Nml appearance, No pedal edema, Other (weakness in LEs; increasing weakness in UEs) Neurologic/Psychiatric: positive: Oriented x3, Sensation nml, Depressed mood/ affect Palliative Care - POLST Patient has POLST: Yes POLST Status: DNR, Comfort Measures Pain: Pain unchanged Drowsiness: None Nausea: None Anxiety: Moderate (4-6) Dyspnea: None Anorexia: None Insomnia: Other (Occasional difficulty sleeping) Feelings of wellbeing/Perceived Quality of Life: Worsening ("I want to ") Performance Status: Current level of functioning: LE weakness, requires extensive help with transfers. Increasing UE weakness. No complaints about shoulder or leg pain today. Palliative Care Performance Status: 50% - Palliative Care Discussion: She is feeling despair about her incurable condition, feeling helpless and that she cant do anything for herself. We had a long discussion about her perceptions, the support system she has here, and discussed possibly adjusting her medication. She does not believe she is depressed, and she doesnt want to increase her medications right now, and we agreed not to not do it now, but to monitor if her mood improves or worsens. She is able to hold good eye contact, has no suicide plan, and did become teary eyed when the visit ended, and thanked me for coming. I spoke to the new manager pharmacy about monitoring her, improving response times to call light, trying to get her more involved in social activities and less isolated. She was very supportive and agreed. Impression and Recommendations - Palliative Care Impression: This is a complex 86-year-old woman with multisystem atrophy and major depressive disorder with on-going struggles with feelings of despair, hopelessness and wanting to . She does not have a plan for suicide, but should be closely monitored for continued suicide ideation and suicidal gestures. Recommendations/Counseling Done: 1. Major depressive disorder: Continue current dosing of venlafaxine 37.5 daily, per patients request. We agree to not increase the dose but to monitor mood/behavior closely, and revisit if mood is not improved. Recommend Terrapin Fisher see her next week. 2. RLS: Stable, continue pramipexole 0.25mg every bedtime. Patient does not want a dosage increase now, but monitor and revisit this if indicated 3. Rash upper back: Stopped triamcinolone 0.1% cream after two weeks. Monitor. Time Spent: 60 minutes with greater than 50% of this done in counseling for depression and treatment risks and benefits.
== END 2016-11-19 13:01 | disposition home or self-care (01) ==
LOC: PC 13:00
PROVIDERS: ATTEND Nurse Practitioner
DX: Z51.5 Encounter for palliative care (principal); F32.9 Major depressive disorder, single episode, unspecified; G25.81 Restless legs syndrome; R21 Rash and other nonspecific skin eruption; Z99.3 Dependence on wheelchair; R61 Generalized hyperhidrosis; R07.9 Chest pain, unspecified; Z66 Do not resuscitate; F41.9 Anxiety disorder, unspecified; R45.851 Suicidal ideations
CPT/HCPCS: 99310

== ENCOUNTER 2016-12-01 08:00 | Outpatient (CLI) | payer MEDICARE, MEDICAID ==
[2016-12-02 02:27] LABS: BASOPHILS # (AUTO) 0.1 10^3/uL (0.0-0.1); BASOPHILS % (AUTO) 1.3 %; EOSINOPHILS # (AUTO) 0.5 10^3/uL (0.0-0.7); EOSINOPHILS % (AUTO) 5.9 %; HCT - HEMATOCRIT 33.9 % (37.0-47.0); HGB - HEMOGLOBIN 11.4 g/dL (12.0-16.0); LYMPHOCYTES # (AUTO) 1.6 10^3/uL (1.5-3.5); LYMPHOCYTES % (AUTO) 17.9 %; MEAN CORPUSCULAR HEMOGLOBIN 28.9 pg (27.0-31.0); MEAN CORPUSCULAR HGB CONC 33.8 g/dL (32.0-36.0); MEAN CORPUSCULAR VOLUME 85.4 fL (81.0-99.0); MEAN PLATELET VOLUME 8.4 fL (7.9-10.8); MONOCYTES # (AUTO) 0.7 10^3/uL (0.0-1.0); MONOCYTES % (AUTO) 7.9 %; NEUTROPHILS # (AUTO) 6.1 10^3/uL (1.5-6.6); NUCLEATED RED BLOOD CELLS AUTO 0.1 /100WBC; RED BLOOD COUNT 3.97 10^6/uL (4.20-5.40); RED CELL DISTRIBUTION WIDTH 14.2 % (12.0-15.0); UNCORRECTED WHITE BLOOD COUNT 9.1 x10^3/uL; WHITE BLOOD COUNT 9.1 x10^3/uL (4.8-10.8)
== END 2016-12-01 23:59 | disposition home or self-care (01) ==
LOC: LAB.R 08:00
DX: I10 Essential (primary) hypertension (principal)
CPT/HCPCS: 85025

== ENCOUNTER 2017-02-15 11:40 | Outpatient (CLI) | payer MEDICARE, MEDICAID ==
--- NOTE | 2017-02-15 15:48 | CONSULTATION NOTE ---
Palliative Care Follow Up - Referral Referring Provider: Mary Lewis PA-c Time of Visit: 10:40 Referral setting: Jail Facility ([facility]) - Information Sources Records reviewed: RN notes reviewed, Previous records reviewed History/Review of Systems obtained from: Patient, Nursing Exam limitations: No limitations (Her Finnish is only fair; at times it's difficult to interpret) - History of Present Illness Update Brief HPI Update: This is an 86-year-old [place] woman with multisystem atrophy and major depressive disorder. She is mobile in a motorized wheelchair, suffers from limited range of motion and lower extremity weakness and tremors and requires maximum assistance with transfers. Nursing has reported her intermittent verbalization of frustration/sadness over her current progressively declining physical capabilities persists and questioned whether increased antidepressants would be useful. Upon assessment today, her basic dissatisfaction is at baseline, in other words she is unhappy with her situation here, finding numerous aspects of the living here to be difficult and "intolerable". However she insists she does not want an increase in dosage of her current antidepressant medication, nor does she want to trial an increase for a limited period. She has various complaints about the caretaking staff, and also does complain that "no one talks to me." She does admit not joining social activities and says she prefers to remain in her room. She does have a volunteer who visits her regularly, Siri, who was there when I entered the room. She also reported attending the facility's Thanksgiving festivities, that a friend came, and the patient enjoyed herself at this event. She hasn't been taken to the ED on January 12 for hip pain and feet she was treated with ibuprofen as well as Keflex for a cellulitis. Her pulse does state DNR and no antibiotics, however the facility did transfer her to ED at her request. She has no physical complaints today, and appears to be at baseline. Her motorized wheelchair is being repaired, and she is currently using a manual wheelchair, which further increases her immobility the since it requires someone to push her. She reports continuing with physical therapy but is no longer on OT. Social History - Living Situation Living arrangement: intermediate ([facility]) Living Situation: With caregiver(s) ([place] her volunteer. She reports having friends in [place], but does not see them very often.) Medications/Allergies - Medications Home Medications: Ambulatory Orders Medication Instructions Recorded Confirmed Cholecalciferol (Vitamin D3) 2,000 unit PO DAILY 01/17/15 02/15/17 [Vitamin D-3] Losartan [Cozaar] 100 mg PO DAILY 01/17/15 02/15/17 Multivit-Min/FA/Lycopen/Lutein 1 each PO DAILY 01/17/15 02/15/17 [Centrum Silver Tablet] Triamterene/Hydrochlorothiazid 1 tab PO DAILY 04/29/15 02/15/17 [Maxzide 37.5 mg-25 mg Tablet] Acetaminophen 500 mg PO BID MDD 3000 mg 10/13/16 02/15/17 Calcium Carbonate [Tums (Calcium 500 mg PO TID PRN 10/13/16 02/15/17 Carbonate 500mg)] Cetirizine HCl 10 mg PO BID 10/13/16 02/15/17 Dry Eye Relief Drops 2 drops TOP BID 10/13/16 02/15/17 House Bowel Program 1 tab PO PRN 10/13/16 Pramipexole Di-HCl [Mirapex] 0.25 mg PO QPM 10/13/16 02/15/17 guaiFENesin/DEXTROMETHORPHAN 10 mg PO Q4HR PRN 10/13/16 02/15/17 [Robitussin Dm] Venlafaxine ER [Effexor ER] 37.5 mg PO DAILY 10/21/16 02/15/17 Acetaminophen 500 mg PO Q6H PRN MDD 3000mg 11/19/16 02/15/17 Acetaminophen 1,000 mg PO Q6H PRN MDD 3000mg 01/04/17 02/15/17 Ferrous Sulfate 325 mg PO DAILY 01/04/17 02/15/17 - Allergies Allergies/Adverse Reactions: Allergies Allergy/AdvReac Type Severity Reaction Status Date / Time alendronate sodium Allergy Unknown Unknown Verified 06/04/15 22:37 lisinopril Allergy Unknown Unknown Verified 06/04/15 22:36 codeine AdvReac Intermediate Emesis Verified 06/04/15 20:45 Review of Systems - Constitutional Constitutional: reports: Fatigue, Weight stable - Ears, Nose & Throat Ears, Nose & Throat: reports: Ear pain (Feels like water is in the R ear) - Cardiovascular Cardiovascular: denies: Chest pain - Respiratory Respiratory: denies: Cough, SOB at rest - Gastrointestinal Gastrointestinal: denies: Constipation, Diarrhea, Nausea, Vomiting - Genitourinary Genitourinary: denies: Dysuria, Frequency - Musculoskeletal Musculoskeletal: reports: Other (Chronic trembles, weakness in lower extremities if she tries to stand) - Neurological Neurological: reports: General weakness, Other (Trembles in lower extremities) - Psychiatric Psychiatric: denies: Depression Physical Exam - Vital Signs Temperature: 97.5 F Pulse Rate: 77 O2 Saturation: 98 Blood Pressure: 122/80 - Physical Exam General Appearance: positive: No acute distress, Alert Eyes Bilateral: positive: EOMI, No lid inflammation, Conjunctivae nml, No scleral icterus ENT: positive: No signs of dehydration Neck: positive: Thyroid nml, No JVD, Trachea midline Cardiovascular: positive: Regular rate & rhythm, No murmur, No gallop Respiratory: positive: Chest non-tender, No respiratory distress, Diminished in bases (in RLL) Skin: positive: No symptoms Extremities: positive: Nml appearance, No pedal edema Neurologic/Psychiatric: positive: Oriented x3, Flat affect Palliative Care - POLST Patient has POLST: Yes POLST Status: DNR, Comfort Measures Pain: No pain Tiredness/Fatigue: Mild (1-3) Drowsiness/Sedation: None Nausea: None Depression: None (Patient denies depression) Anxiety: None Dyspnea: None Anorexia: None Sleep: Sleeps well Constipation: No Feelings of wellbeing/Perceived Quality of Life: Poor, No change Performance Status: Current level of functioning: Wheelchair bound, unable to stand, requires assistance for all transfers, and aid with all ADLs due to multi-system atrophy. Palliative Care Performance Status: 50% - Palliative Care Discussion: Who is present: The patient and myself. Her volunteer left after I entered the room Surrogate decision maker: Natasha Espino (niece/DPOA) [phone] Most important goals: Patient's POLST is DNR comfort measures, and no antibiotics. However, recently she requested to be sent to ED for hip pain and fever, and she was treated with ibuprofen for that, and given Keflex for a cellulitis. Patient concerns: Patient reports feeling that she has moisture in her R ear after a shower a few days ago. She felt the nurse "didn't care." Impression and Recommendations - Palliative Care Impression: This is a complex 86-year-old woman with multisystem atrophy and major depressive disorder. She is at baseline, expressing her dissatisfaction and frustration with living here in the facility. She is not actively expressing suicidal ideation. She reports being socially isolated, that "no one talks to me ," and states that she prefers to stay in her room. It would be beneficial if staff could encourage her to participate in social activities to alleviate her social isolation. Recommendations/Counseling Done: Major depressive disorder: Stable. Continues to express dissatisfaction with life and health, but numerous times today refused to increase venlafaxine dosage , which is currently 35.5mg daily. She also refused a "trial" increase. She says she does not like medicines and doesn't like the effect. Will revisit this at next visit, also can consider switching medications. Requested facility to encourage her to become more involved in social activities. Her motorized wheelchair is currently out for repair, and this exacerbates her isolation since she now requires someone to push her wheelchair. RLS: Stable, no change. Continue pramipexole 0.25mg QHS. Fluid in R ear: Not actually pain, it feels like water is in it from last shower 5 days ago. Ordered ear drying drops, or Debox if that is the only drops the facility has, BID x 7 days. Also request nursing to prop her on her R side in bed at night. She has a routine visit with her PCP on 02/22/17. Advanced care planning: No changes. Her POLST in DNR, comfort meds, and no antibiotics. However, on 01/12/17 she complained of fever and hip pain and requested transfer to ED, which facility did do. She was treated with ibuprofen for the pain and fever, and Keflex for cellulitis. Time Spent: 45 minutes were spent with more than 50% of the time spent on counseling, education, and coordination of care regarding depression and social isolation.
== END 2017-02-15 11:41 | disposition home or self-care (01) ==
LOC: PC 11:40
PROVIDERS: ATTEND Nurse Practitioner
DX: Z51.5 Encounter for palliative care (principal); F32.9 Major depressive disorder, single episode, unspecified; G25.81 Restless legs syndrome; M62.81 Muscle weakness (generalized); H92.01 Otalgia, right ear; R25.1 Tremor, unspecified; Z99.3 Dependence on wheelchair; Z66 Do not resuscitate
CPT/HCPCS: 99310

== ENCOUNTER 2017-02-22 15:06 | Outpatient (CLI) | payer MEDICARE, MEDICAID ==
[2017-02-22 19:08] LABS: ALBUMIN/GLOBULIN RATIO 1.2 (1.0-2.2); BILIRUBIN,TOTAL 0.5 mg/dL (0.2-1.0); BUN - BLOOD UREA NITROGEN 37 mg/dL (6-20); CALCIUM 9.5 mg/dL (8.5-10.3); CARBON DIOXIDE - CO2 25 mmol/L (21-32); CHLORIDE 106 mmol/L (101-111); CHOL/HDL RATIO 5.4 (<4.4); CHOLESTEROL 233 mg/dL; CREATININE 1.5 mg/dL (0.4-1.0); GFR - MDRD 33 (>89); GLUCOSE 101 mg/dL (70-100); HDL CHOLESTEROL 43 mg/dL; LDL/HDL RATIO 3.1 (<4.4); POTASSIUM 4.1 mmol/L (3.5-5.0); SODIUM 139 mmol/L (135-145); TOTAL PROTEIN 7.9 g/dL (6.7-8.2); TRIGLYCERIDES 282 mg/dL; VLDL CHOLESTEROL 56 mg/dL
[2017-02-22 19:15] LABS: BASOPHILS % (AUTO) 0.5 %; EOSINOPHILS # (AUTO) 0.4 10^3/uL (0.0-0.7); EOSINOPHILS % (AUTO) 4.3 %; HCT - HEMATOCRIT 37.8 % (37.0-47.0); HGB - HEMOGLOBIN 12.2 g/dL (12.0-16.0); LYMPHOCYTES # (AUTO) 1.5 10^3/uL (1.5-3.5); LYMPHOCYTES % (AUTO) 17.9 %; MEAN CORPUSCULAR HEMOGLOBIN 28.8 pg (27.0-31.0); MEAN CORPUSCULAR HGB CONC 32.3 g/dL (32.0-36.0); MEAN CORPUSCULAR VOLUME 89.4 fL (81.0-99.0); MEAN PLATELET VOLUME 8.2 fL (7.9-10.8); MONOCYTES # (AUTO) 0.6 10^3/uL (0.0-1.0); MONOCYTES % (AUTO) 7.2 %; NEUTROPHILS # (AUTO) 5.9 10^3/uL (1.5-6.6); NEUTROPHILS % (AUTO) 70.1 %; RED BLOOD COUNT 4.23 10^6/uL (4.20-5.40); RED CELL DISTRIBUTION WIDTH 13.5 % (12.0-15.0); UNCORRECTED WHITE BLOOD COUNT 8.4 x10^3/uL; WHITE BLOOD COUNT 8.4 x10^3/uL (4.8-10.8)
== END 2017-02-22 15:07 | disposition home or self-care (01) ==
LOC: LAB.WCP 15:06
PROVIDERS: ATTEND Physician Assistant Medical
DX: E78.5 Hyperlipidemia, unspecified (principal); K21.9 Gastro-esophageal reflux disease without esophagitis
CPT/HCPCS: 36415; 80053; 80061; 85025

== ENCOUNTER 2017-04-08 17:18 | Outpatient (CLI) | payer MEDICARE, MEDICAID ==
--- NOTE | 2017-04-08 17:20 | CONSULTATION NOTE ---
Palliative Care Follow Up - Referral Referring Provider: Mary Lewis PA-C Time of Visit: 1245-130 pm Referral setting: [facility] Referral Reason: Depression/Multisystem Atrophy - Information Sources Records reviewed: Previous records reviewed, Other (MD appointment) History/Review of Systems obtained from: Patient Exam limitations: No limitations - History of Present Illness Update Brief HPI Update: This is an 86-year-old [place] woman who has multisystem atrophy, and major depressive disorder. She is in a complex situation in the context that she is at the long-term, she has been unhappy since her transition here in October 2015. She perceives her quality of life is quite poor, continues to have a litany of complaints that are most likely valid in nature as far as her loss of control, and independence, in this setting. She continues along her theme that she wants me to "just kill her",And reflects that this is an response to all her losses, her lack of support, and her ongoing unhappiness with her situation. She denies suicidal intent as far as attempting herself, and if she were to get acutely ill/or decline does not want intervention, this has been consistent. She has though been quite healthy, and presents only with a list of chronic complaints/problems. She had seen her primary care provider in February , unclear as far as follow-up regarding further specialty consultations for her for her trigger finger, and neurology. In following up regarding the neurologist, we did discuss as far as what she would hope from this, as it would be quite difficult for her to access this specialty in her current situation. In reviewing her symptoms of decline over the last few months, she does have increased trouble with fine motor movement, her upper arms are more difficult, she does have right leg weakness and is unable to spontaneously move this. And is now more listing to the right side with poor trunk control. She currently still is able to work with her electric wheelchair, this does give her some freedom of mobility, but is dependent for transfers, and all other ADLs. She does have 4th finger trigger and developing in the 5th. She also is finding her ability to communicate as far as "running out of breath", that is tiring for her to talk for extended periods of time more than a few sentences. She does not have any cough or choking episodes at this point in time.She is also complaining of increased pruritus and itching, no rash noted but dryness and scratching. Medications/Allergies - Medications Home Medications: Ambulatory Orders Medication Instructions Recorded Confirmed Cholecalciferol (Vitamin D3) 2,000 unit PO DAILY 01/17/15 04/09/17 [Vitamin D-3] Losartan [Cozaar] 100 mg PO DAILY 01/17/15 04/09/17 Multivit-Min/FA/Lycopen/Lutein 1 each PO DAILY 01/17/15 04/09/17 [Centrum Silver Tablet] Triamterene/Hydrochlorothiazid 1 tab PO DAILY 04/29/15 04/09/17 [Maxzide 37.5 mg-25 mg Tablet] Acetaminophen 500 mg PO BID MDD 3000 mg 10/13/16 04/09/17 Calcium Carbonate [Tums (Calcium 500 mg PO TID PRN 10/13/16 04/09/17 Carbonate 500mg)] Cetirizine HCl 10 mg PO DAILY 10/13/16 04/09/17 Dry Eye Relief Drops 2 drops TOP BID 10/13/16 04/09/17 House Bowel Program 1 tab PO PRN PRN 10/13/16 04/09/17 Pramipexole Di-HCl [Mirapex] 0.25 mg PO QPM 10/13/16 04/09/17 guaiFENesin/DEXTROMETHORPHAN 10 mg PO Q4HR PRN 10/13/16 04/09/17 [Robitussin Dm] Venlafaxine ER [Effexor ER] 37.5 mg PO DAILY 10/21/16 04/09/17 Acetaminophen 500 mg PO Q6H PRN MDD 3000mg 11/19/16 04/09/17 Acetaminophen 1,000 mg PO Q6H PRN MDD 3000mg 01/04/17 04/09/17 Ferrous Sulfate 325 mg PO DAILY 01/04/17 04/09/17 Ascorbic Acid [Vitamin C] 500 mg PO DAILY 04/09/17 04/09/17 - Allergies Allergies/Adverse Reactions: Allergies Allergy/AdvReac Type Severity Reaction Status Date / Time alendronate sodium Allergy Unknown Unknown Verified 06/04/15 22:37 lisinopril Allergy Unknown Unknown Verified 06/04/15 22:36 codeine AdvReac Intermediate Emesis Verified 06/04/15 20:45 Review of Systems - Constitutional Constitutional: reports: Fatigue, Weight gain (164.8) - Eyes Eyes: reports: Vision loss (Reports having increased difficulty reading are seen , corrective lenses do not really work, but is on willing to pursue further.) - Ears, Nose & Throat Ears, Nose & Throat: reports: Postnasal drainage (improved) - Cardiovascular Cardiovascular: denies: Chest pain - Respiratory Respiratory: denies: Cough, Wheezing - Gastrointestinal Gastrointestinal: reports: Good appetite. denies: Constipation, Nausea - Genitourinary Genitourinary: reports: Incontinence (at times) - Musculoskeletal Musculoskeletal: reports: Stiffness, Limited range of motion (hands worsening), Muscle weakness (lists to the right; poor trunk control), Transfer issues (more difficulty with transfers; uses electric wheelchair) - Integumentary Integumentary: reports: Dryness (scratches upper arms; reports lotion but only after showers once a week) - Neurological Neurological: reports: Other (RLS improved). denies: Memory problems - Psychiatric Psychiatric: reports: Depression. denies: Suicidal - Endocrine Endocrine: denies: Diabetes type 2, Hypothyroidism - Hematologic/Lymphatic Hematologic/Lymphatic: reports: Anemia (improved). denies: Recurrent infections - All Other Systems All Other Systems: reports: Reviewed and negative Physical Exam - Vital Signs Temperature: 98.2 C Pulse Rate: 72 Respiratory Rate: 18 O2 Saturation: 98 (ra @ rest) Blood Pressure: 122/62 - Physical Exam General Appearance: positive: No acute distress, Alert Eyes Bilateral: positive: Normal inspection ENT: positive: No signs of dehydration Neck: positive: No JVD, Trachea midline Cardiovascular: positive: Regular rate & rhythm Respiratory: positive: Breath sounds nml, Rales (few crackles right lower lobe; resolved with deep breathing; ateletasis) Abdomen: positive: Soft Skin: positive: Dryness, Pruritis (scratches upper arms) Extremities: positive: No pedal edema, Other (unable to move right leg on command; left with great effort; right hand with trigger finger 4/5; 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; lists to right without truncal support) Neurologic/Psychiatric: positive: Oriented x3, Depressed mood/affect Palliative Care - POLST Patient has POLST: Yes POLST Status: DNR, Comfort Measures Pain: Pain unchanged, Location (shoulders left greater than right; currently on BID APAP satisfied with current regimen) Tiredness/Fatigue: Moderate (4-6), Comment (patient chooses to stay in room "no body understands me when I talk"; not participating in activities despite encouragement) Drowsiness/Sedation: Mild (1-3) Nausea: None Depression: Moderate (4-6) Anxiety: None Dyspnea: None Anorexia: None Sleep: Sleeps well Constipation: No Feelings of wellbeing/Perceived Quality of Life: Poor, No change, Worsening ( Patient continues to perceive quality of life is poor, with increasing though incremental changes in her functional status and increased dependence she is becoming more distressed, she has difficulty finding patience with staff, staff turnover, and ongoing distress about wait times) Performance Status: She can self feed, but is unable to transfer independently, she can have her scooter without assistance. She is dependent on staff for bathing, dressing, and toileting. - Palliative Care Discussion: Patient continues to express multiple regrets regarding her current situation, choices she is made in the past, and her financial stressors. She is unhappy with her current quality of life, perseverates on the multiple losses regarding this, as well as her current situation. She denies suicidality, but does want me to "kill her". We did discuss again in the context of her disease process, it is a chronic ongoing decline, though it is terminal, she is not within a 6 month window as far as with dignity. She can choose though at a point where she is acutely ill or further decline to choose to refuse medical intervention or support. She continues to reiterate these choices, that if her time comes that we allow natural and she is not to treat. 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 She still has committed friends from [place] that visit her regularly, but again chooses not to participate in many of the activities offered because they "do not understand her", and she does have a fairly thick accent and is becoming more difficult as far as her speech. Results - Lab Results Lab results reviewed: Yes Lab and Imaging Results: 02/22 labs with primary, cont. CKD with GFR 33; creat 1.5 Impression and Recommendations - Palliative Care Impression: This is an 86-year-old woman who has a complex physical and social history, she does present with multisystem atrophy with some decline as well as ongoing major depressive disorder. She continues to struggle in her current setting, with her perceived poor quality of life, and her ongoing dependency issues. Recommendations/Counseling Done: ,Multisystem atrophy. Patient does present today with increased dysphonia, increased upper extremity weakness, and truncal instability. Will follow up with therapy regarding if there is anything else as far as adding to quality of life issues that they might be able to add. 2. Depressive disorder.Patient continues to perseverate and complain of depressive feelings and symptoms regarding her current situation, quality of life, and wanting to . She denies any suicidal intent, requests "I just kill her". She is quite despondent, we discussed increasing her antidepressant , she dislikes the perception of causing more sedation. She had actually wanted it discontinued, we did discuss in the context of her current expression of ongoing distress would recommend we continue. Patient's distress is more related necessarily to her mood disorder but to her current situation, counseling again regarding cognitive behavioral techniques regarding reframing, refocusing, and finding ways to engage in things that she does enjoy. She was able to identify things that are supportive of her, but continues to perceive much of her difficulty is staff not being able to understand her and other residents as well. She is being supported by palliative care volunteer on a regular basis, she really enjoys as visits, her family caseworker Jessica Hendricks, as well as palliative care [employer] worker. I will follow-up with Jessica if there is any further counseling support available to her. 3. Rash noted upper extremities. She reports she has underlying pruritus, has been scratching, unclear etiology other than dry skin. Will go ahead and reinitiate triamcinolone ointment to her upper extremities for 2 weeks, see if this improves. She is already on Zytrec daily. 4. Advanced care planning. SIMBA ST in place, patient's goals remain comfort focused only, continue maximizing support as available with our current limited resources. Time Spent: Time spent 45 minutes with good 50% of this done in counseling regarding depression and cognitive behavioral techniques including refocusing, redirecting , and challenging catastrophic thoughts. Coronation of care with rehab, and its management messages left.
== END 2017-04-08 17:19 | disposition home or self-care (01) ==
LOC: PC 17:18
PROVIDERS: ATTEND Nurse Practitioner Adult Health
DX: Z51.5 Encounter for palliative care (principal); G13.8 Systemic atrophy primarily affecting central nervous system in other diseases classified elsewhere; R49.0 Dysphonia; M62.81 Muscle weakness (generalized); F32.9 Major depressive disorder, single episode, unspecified; R21 Rash and other nonspecific skin eruption; Z66 Do not resuscitate; M25.512 Pain in left shoulder; M25.511 Pain in right shoulder
CPT/HCPCS: 99310

== ENCOUNTER 2017-05-03 10:30 | Outpatient (CLI) | payer MEDICARE, MEDICAID ==
--- NOTE | 2017-05-03 22:30 | CONSULTATION NOTE ---
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 She is in a complex situation in the context is at a correction, she has been very unhappy since I have met her back in October 2015. She perceives her quality of life is quite poor, has a litany of complaints and most valid in nature, feels like she has no meaning or purpose, and has since I met her wanted to have me give her "the black pill". She has had slow decline as far as her functional status, she is having more difficulty with transfers, less dexterity with her fine motor movements, located by her trigger finger, as well as now somewhat listing to the lung right with trunk instability. She does find herself easily fatigued, she denies any choking episodes, but had expressed to her welfare case worker her intent to stop eating, drinking and taking medications. This was yesterday, she reports that yesterday evening she was quite hungry, and now today she presents with some GI illness, watery diarrhea, dehydration, low grade temp. and nausea. In the context of her expressed intention, we talked about this as far as a suicidal gesture, but she does have the right to decline medication as well as medical intervention, but because she has underlying depression, I would need to move forward with the mental health examination, and possible trip to the ED. The patient does present with medical decision making capacity, she has very little insight or understanding, of the implications of her decision. She is taking fluids currently, and requested some soup. She expresses persistent hopelessness, helplessness, and continues to perseverate on the difficulty she is currently facing, these are not new themes but the intensity and despair is noticeable as far as compared to previous conversations. Social History - Living Situation Living arrangement: snf (Patient is estranged from her daughter, little contact with her niece and sister who are in the area. She does have some good friends of visit her on a regular basis, as well as a palliative care volunteer, and the palliative care inspector receiving. She is supported by Jessica Hendricks who is her welfare case worker through [facility] health counseling , but currently is not seeing a counselor.) Medications/Allergies - Medications Home Medications: Ambulatory Orders Medication Instructions Recorded Confirmed Cholecalciferol (Vitamin D3) 2,000 unit PO .HOLD 01/17/15 05/03/17 [Vitamin D-3] Losartan [Cozaar] 100 mg PO DAILY 01/17/15 05/03/17 Multivit-Min/FA/Lycopen/Lutein 1 each PO .HOLD 01/17/15 05/03/17 [Centrum Silver Tablet] Triamterene/Hydrochlorothiazid 1 tab PO .HOLD 04/29/15 05/03/17 [Maxzide 37.5 mg-25 mg Tablet] Acetaminophen 500 mg PO BID MDD 3000 mg 10/13/16 05/03/17 Calcium Carbonate [Tums (Calcium 500 mg PO TID PRN 10/13/16 05/03/17 Carbonate 500mg)] Cetirizine HCl 10 mg PO DAILY PRN 10/13/16 05/03/17 Dry Eye Relief Drops 2 drops TOP BID 10/13/16 05/03/17 House Bowel Program 1 tab PO PRN PRN 10/13/16 05/03/17 Pramipexole Di-HCl [Mirapex] 0.25 mg PO QPM 10/13/16 05/03/17 guaiFENesin/DEXTROMETHORPHAN 10 mg PO Q4HR PRN 10/13/16 05/03/17 [Robitussin Dm] Venlafaxine ER [Effexor ER] 37.5 mg PO DAILY 10/21/16 05/03/17 Acetaminophen 1,000 mg PO Q6H PRN MDD 3000mg 01/04/17 05/03/17 Ondansetron [Ondansetron Odt] 4 mg PO Q6HR PRN 05/03/17 05/03/17 - Allergies Allergies/Adverse Reactions: Allergies Allergy/AdvReac Type Severity Reaction Status Date / Time alendronate sodium Allergy Unknown Unknown Verified 06/04/15 22:37 lisinopril Allergy Unknown Unknown Verified 06/04/15 22:36 codeine AdvReac Intermediate Emesis Verified 06/04/15 20:45 Review of Systems - Constitutional Constitutional: reports: Fatigue, Malaise, Weakness, Poor appetite, Weight loss. denies: Fever, Chills - Eyes Eyes: reports: Vision loss, Corrective lenses - Ears, Nose & Throat Ears, Nose & Throat: reports: Hearing loss, Nasal congestion, Dry mouth - Cardiovascular Cardiovascular: reports: Decr. exercise tolerance. denies: Chest pain - Respiratory Respiratory: denies: Cough, SOB at rest, SOB with exertion - Gastrointestinal Gastrointestinal: reports: Abdominal distention, Diarrhea, Nausea, Reflux/ heartburn, Poor appetite - Genitourinary Genitourinary: reports: Incontinence (intermittent if don't get there in time) - Musculoskeletal Musculoskeletal: reports: Muscle aches, Stiffness, Limited range of motion, Muscle weakness, Transfer issues - Neurological Neurological: reports: General weakness - Psychiatric Psychiatric: reports: Depression, Suicidal - Endocrine Endocrine: denies: Diabetes type 2, Hypothyroidism - Hematologic/Lymphatic Hematologic/Lymphatic: denies: Anemia, Recurrent infections Physical Exam - Vital Signs Temperature: 97.8 C Pulse Rate: 88 Respiratory Rate: 18 Blood Pressure: 112/70 - Physical Exam General Appearance: positive: Mild distress Eyes Bilateral: positive: Conjunctivae nml, No scleral icterus ENT: positive: Dry mucous membranes Neck: positive: No JVD, Trachea midline Cardiovascular: positive: Irregularly irregular Respiratory: positive: Diminished in bases. negative: Wheezes, Rales, Rhonchi Abdomen: positive: Non-tender, Soft Skin: positive: Pallor, Dryness Extremities: positive: No pedal edema Neurologic/Psychiatric: positive: Oriented x3, Depressed mood/affect, Flat affect Palliative Care - POLST Patient has POLST: Yes POLST Status: DNR, Comfort Measures Pain: Comment (reports overall achiness with flu) Tiredness/Fatigue: Moderate (4-6) Drowsiness/Sedation: Mild (1-3) Nausea: Moderate (4-6) ("spitting" up phelgm) Depression: Severe (7-10), Suidical ideation Anxiety: Mild (1-3) Dyspnea: None Anorexia: Mild (1-3) Sleep: Variable sleep pattern Feelings of wellbeing/Perceived Quality of Life: Poor, Worsening Performance Status: Patient has a scooter, currently having difficulty with battery, this is 1 of her triggers has been her difficulty with her wheelchair. She does get overwhelmed, this is 1 of a few things that she has to be able to support her independence. She is currently on precautions, so is unable to leave the room. She is a max assist to the toilet and/or commode with pivot transfer. - Palliative Care Discussion: Patient continues to struggle with her poor quality of life, so she has had decline she does not present with symptoms that put her within the 6 month trajectory one would expect for hospice transition and or terminal diagnosis. We discussed at length her distress since their current situation, her poor quality of life, and litany of complaints regarding her current situation.Patient has had weight loss though I suspect the accuracy of March his weight 02/19 she was 159; 03/28 she was 164.8; and 04/21 she was 154.8. In reviewing her nutrition Mar, for the most part she does eat 75-100% of her meals over the last two weeks, but only refused one meal 05/02, and ate last night. The same with her medication refused only yesterday. Long discussion in the context of refusing food and drink, that it actually is a fairly long prolonged drawnout process, and at the point of time that she is no longer it will make decisions and is not awake and speak for herself, I would need to invoke her DPOAE and include her niece in her plan of care. After much discussion, we did come up with the plan. This is somewhat complicated by her current GI illness as far as if it is patient's current symptom burden and are her choice as far as wanting to eat or drink. She did have me have them send some fluids and chicken noodle soup. 1. Patient will attempt to eat, she does now have an antiemetic if she needs it , encouraged with her current flulike symptoms to focus on fluids. Staff will bring food into the room, and inquire if there is anything else as far as particularly with her current acute illness. 2. Medication adherence. Did agree to put unnecessary medications on hold for the week, reviewed unable to stop her antidepressant, but we could look at other options if she is feeling this is interfering with her clarity. Overall patient could probably discontinue her iron and vitamin C, as well as supplements if wanted. Will go ahead and order daily vital signs to monitor for hypotension and/or hypertension. 3. Suicidal Ideation .Contract agreed upon. Patient unable to write but did verbally consent to not further pursue self-harm, to attempt to eat and drink particularly in the context of her illness to stay hydrated, and with decreasing the number of medications to take what is brought to her as well as she has the choice to take acetaminophen or ondansetron for symptoms if she wanted.Did review if patient pursues suicidal intent, given the guidelines of the correction, most likely would need to send to emergency room for evaluation., For [facility]. Will follow up with mental health accountant supervisor, if further counseling resources available to patient again. Agreed to meet in 1 week, and evaluate progress, and less have her differently from clinical staff. Impression and Recommendations - Palliative Care Impression: This is an 86-year-old woman with long-standing depression, as well as the sequela of muscular system atrophy. Presents today with history of suicidal ideation and expressed plan to stop eating and drinking and not take her meds. Patient has agreed to contract, to not inflict self-harm, this is though complicated by the fact she does have a GI illness and feels poorly now. Medications simplified, reviewed the consequences if needed to go to the next step, follow-up with Dr. Castellanos and Zuleika HOLMAN regarding patient's agreement. Recommendations/Counseling Done: 1. Suicidal ideation. Please see under palliative care discussion agreement tenets made, this is been communicated to staff, and will follow up in 1 week. 2. Medication adherence. Medications put on hold her contract above. Will have daily vital signs though to monitor for symptoms of hypo-/hypertension. 3.GI illness. Dr. Castellanos has ordered specimen, unclear etiology. Patient without high fevers are acute abdominal pain. Instructed to push fluids and use ondansetron as needed. Will defer to PCP for management of this. Time Spent: 60 minutes with good than 50% of this done in counseling regarding depression, suicidal ideation, defining contract and adjusting treatment plan. Coordination of care with PCP now Dr. Castellanos, clinical staff, and with facility protective services social worker. Message left for welfare case worker.
== END 2017-05-03 10:31 | disposition home or self-care (01) ==
LOC: PC 10:30
PROVIDERS: ATTEND Nurse Practitioner Adult Health
DX: Z51.5 Encounter for palliative care (principal); R45.851 Suicidal ideations; R19.7 Diarrhea, unspecified; E86.0 Dehydration; R11.0 Nausea; R50.9 Fever, unspecified; G13.8 Systemic atrophy primarily affecting central nervous system in other diseases classified elsewhere; R53.81 Other malaise; R53.83 Other fatigue; F32.9 Major depressive disorder, single episode, unspecified; F41.9 Anxiety disorder, unspecified; M62.81 Muscle weakness (generalized); Z66 Do not resuscitate
CPT/HCPCS: 99310

== ENCOUNTER 2017-05-03 11:40 | Outpatient (CLI) | payer MEDICARE, MEDICAID | END 2017-05-03 11:41 | disposition home or self-care (01) | LOC: LAB.R 11:40 | DX: J11.2 Influenza due to unidentified influenza virus with gastrointestinal manifestations (principal) | CPT/HCPCS: 87798 ==

== ENCOUNTER 2017-05-10 13:30 | Outpatient (CLI) | payer MEDICARE, MEDICAID ==
--- NOTE | 2017-05-11 06:03 | CONSULTATION NOTE ---
Palliative Care Follow Up - Referral Referring Provider: Mary Lewis PA-C/Dr. Van Castellanos Time of Visit: VISIT DAY 05/10/2017 [id number] Referral setting: [facility] Referral Reason: Depression - Information Sources Records reviewed: Previous records reviewed History/Review of Systems obtained from: Patient, Caregiver (clinical staff) Exam limitations: No limitations - History of Present Illness Update Brief HPI Update: This is an 86-year-old [place]ian woman who has multisystem atrophy, a major depression disorder, she had made an expression of suicidal ideation last week. She did threaten to quit eating and drinking as well as stopped taking her medications. In the context also of her situation, she was becoming acutely ill , and did have confirmed Noravirus. Her GI symptoms have resolved, she does present bright and interactive, much less depressed and distressed today. She denies any suicidal ideation, reports her depression is improved as well as her mood, the continues to express her distress at her ongoing dependence and perceived lack of meaning in her life. And our contract last week, I had held multiple medications per her request, we have reviewed those and we done her medication list per her preferences as well as to be her medical needs. She does repeat reports some increase in weakness, she had been "quarantined" with the Noravirus,As well as her wheelchair needing repairs. She has spent more time in bed, she has right-sided weakness, as well as noting increased contracture in her right ankle, she has not been wearing her braces. She also complains of some increased left thigh pain and discomfort. Social History - Living Situation Living arrangement: longterm (Patient has been a resident since late summer 2015 of the long term. She has very little support outside of her lining caser, and the palliative care team. She is estranged from her daughter) Medications/Allergies - Medications Home Medications: Ambulatory Orders Medication Instructions Recorded Confirmed Cholecalciferol (Vitamin D3) 2,000 units PO 1800 01/17/15 05/11/17 [Vitamin D-3] Losartan [Cozaar] 100 mg PO DAILY 01/17/15 05/11/17 Multivit-Min/FA/Lycopen/Lutein 1 each PO 1800 01/17/15 05/11/17 [Centrum Silver Tablet] Calcium Carbonate [Tums (Calcium 500 mg PO TID PRN 10/13/16 05/11/17 Carbonate 500mg)] Cetirizine HCl 10 mg PO DAILY PRN 10/13/16 05/11/17 Dry Eye Relief Drops 2 drops TOP BID 10/13/16 05/11/17 House Bowel Program 1 tab PO PRN PRN 10/13/16 05/11/17 Pramipexole Di-HCl [Mirapex] 0.25 mg PO QPM 10/13/16 05/11/17 guaiFENesin/DEXTROMETHORPHAN 10 mg PO Q4HR PRN 10/13/16 05/11/17 [Robitussin Dm] Venlafaxine ER [Effexor ER] 37.5 mg PO DAILY 10/21/16 05/11/17 Acetaminophen 1,000 mg PO Q6H PRN MDD 3000mg 01/04/17 05/11/17 Ondansetron [Ondansetron Odt] 4 mg PO Q6HR PRN 05/03/17 05/11/17 - Allergies Allergies/Adverse Reactions: Allergies Allergy/AdvReac Type Severity Reaction Status Date / Time alendronate sodium Allergy Unknown Unknown Verified 06/04/15 22:37 lisinopril Allergy Unknown Unknown Verified 06/04/15 22:36 codeine AdvReac Intermediate Emesis Verified 06/04/15 20:45 Review of Systems - Constitutional Constitutional: reports: Fatigue, Weight loss (no recent weights; requested weekly) - Eyes Eyes: reports: Vision loss, Corrective lenses - Ears, Nose & Throat Ears, Nose & Throat: denies: Nasal congestion - Cardiovascular Cardiovascular: reports: Decr. exercise tolerance - Gastrointestinal Gastrointestinal: reports: Early satiety, Other (reports regular soft formed stool). denies: Diarrhea, Nausea, Vomiting - Genitourinary Genitourinary: reports: Other (distressed as is continent at wait times; is modest so needs cgs to leave) - Musculoskeletal Musculoskeletal: reports: Stiffness, Limited range of motion (right shoulder; RLE), Muscle weakness, Transfer issues (weaker and needing more assist) - Integumentary Integumentary: reports: Pruritis, Dryness - Neurological Neurological: reports: General weakness - Psychiatric Psychiatric: reports: Depression. denies: Suicidal - Hematologic/Lymphatic Hematologic/Lymphatic: reports: Recurrent infections (recent norovirus) - All Other Systems All Other Systems: reports: Reviewed and negative Physical Exam - Vital Signs Temperature: 97.9 C Pulse Rate: 63 Respiratory Rate: 18 O2 Saturation: 97 (ra @ rest) Blood Pressure: 122/72 - Physical Exam General Appearance: positive: No acute distress, Alert Eyes Bilateral: positive: Conjunctivae nml ENT: positive: No signs of dehydration Neck: positive: Trachea midline. negative: Lymphadenopathy (R), Lymphadenopathy (L) Cardiovascular: positive: Regular rate & rhythm Respiratory: positive: Diminished in bases. negative: Wheezes, Rales, Rhonchi Abdomen: positive: Non-tender, Soft, Nml bowel sounds. 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-makes it difficult to drink; c/o left thigh pain-some tenderness on palpation no change in ROM or visible injury) Neurologic/Psychiatric: positive: Oriented x3, Mood/affect nml Palliative Care - POLST Patient has POLST: Yes POLST Status: DNR, Comfort Measures Pain: Location (new pain left thigh; encouraged to use PRN APAP as needed;) Tiredness/Fatigue: Moderate (4-6) Drowsiness/Sedation: Mild (1-3) Nausea: None Depression: Moderate (4-6) Anxiety: None Dyspnea: None Anorexia: Mild (1-3) (continues with fluctuating appetite since illness;) Sleep: Sleeps well Constipation: No Feelings of wellbeing/Perceived Quality of Life: Fair, Improved Performance Status: Patient has been room bound secondary to the acute illness. She has had less time up in her chair, she is dependent for all ADLs. She is able to self-feed that this is made more difficult by her contracture. - Palliative Care Discussion: Discussion regarding patient's current status in the context of her depression, she denies suicidal ideation today. She is somewhat resigned, "you cannot fix how I feel, I am just useless". 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 We did discuss further support that might be of use for her, she declines wanting to see anybody else other than her current support team. She did agree to notify the nurses and/or staff if this changes, or she starts feeling poorly again. Results - Lab Results Lab results reviewed: Yes Impression and Recommendations - Palliative Care Impression: This is an 86-year-old woman with long-standing major depressive disorder, as well as ongoing decline as a sequela of her muscular system atrophy. She does present with improved symptoms regarding her depression, and had deteriorated to the point of suicidal ideation, but today she denies this and is presenting with improved mood, engaged more in conversation, and is feeling better now she is recovered from the neurovirus. Recommendations/Counseling Done: 1. Depression. Patient presents with improved mood, denies suicidal ideation today, is willing to continue to eat though her appetite is fluctuating, and we negotiated her medication list to reflect both medical needs and goals. 2. Norovirus.Patient's GI symptoms have resolved, she is no longer on quarantine, though waiting on facility's current containment plan to return to the dining room. Dupuytren's contracture. Will defer to patient's new primary Dr. Van Castellanos , patient does perceive at she would follow through if offered and intervention including surgery. It does make it difficult to eat as well as hold her cup. 4. Multisystem atrophy. Patient had wanted a referral to a neurologist, explore this in the context of information she was seeking. She was wondering if there was "care". We did discuss it is a neurodegenerative disease, that different people deteriorated different rates, but patient has been showing decline though certainly not rapid. Would be willing to facilitate this if this was information that was going to assist her in coping with her disease. At this point she is not interested in furthering pursuit of this referral. 5. Advanced care planning. Patient's goals are continued to focus on not prolonging her current perception of her poor quality of life and suffering. If patient were to have an acute illness, or need for hospitalization, patient would want focus on comfort measures only and no intervention. She has been consistent in messaging this for the last year and a half. Her SIM[facility], does reflect this. Time Spent: 45 minutes with greater than 50% of this done in counseling regarding patient's depression and coordination of care with clinical staff
== END 2017-05-10 13:31 | disposition home or self-care (01) ==
LOC: PC 13:30
PROVIDERS: ATTEND Nurse Practitioner Adult Health
DX: Z51.5 Encounter for palliative care (principal); F32.9 Major depressive disorder, single episode, unspecified; A08.11 Acute gastroenteropathy due to Norwalk agent; M72.0 Palmar fascial fibromatosis [Dupuytren]; G13.8 Systemic atrophy primarily affecting central nervous system in other diseases classified elsewhere; R45.851 Suicidal ideations; M62.81 Muscle weakness (generalized); Z66 Do not resuscitate
CPT/HCPCS: 99310

== ENCOUNTER 2017-05-24 15:55 | Outpatient (CLI) | payer MEDICARE, MEDICAID ==
--- NOTE | 2017-05-24 17:23 | CONSULTATION NOTE ---
Palliative Care Follow Up - Referral Referring Provider: Mary Lewis PA-C Time of Visit: 05/24/2017. 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 She also at that time had confirmed norovirus. At the previous follow-up visit on 05/10/2017 she was less depressed and distressed, and more bright and interactive. At today's follow-up visit that trend continues. She says, "I am okay." She does report enjoying the visits of Marie, her volunteer, and that she finds the people "nice" here. She did not speak of feeling dependent and without meaning in her life. She did say she no longer goes to [facility] because the weather is bad and her motorized wheelchair is not working. She notes that she has less independence without a motorized wheelchair and she can be mobile only if someone pushes her in the manual wheelchair.She reports her appetite is improving. She had no questions or concerns. When I asked if she did, her reply was, "I don 't have any worries -- what is there to worry about." She was consistent about presenting a more positive and upbeat attitude. I was unable to determine if it was sincere, or because she felt it was expected of her. She was gracious and politely thanked me for coming. Social History - Living Situation Living arrangement: assisted ([place]) Living Situation: With caregiver(s) Support System: She has very little support outside of her casework supervisor, and the palliative care team. She is estranged from her daughter. She really appreciates and enjoys the visits of the palliative care volunteer, Marie. Medications/Allergies - Medications Home Medications: Ambulatory Orders Medication Instructions Recorded Confirmed Cholecalciferol (Vitamin D3) 2,000 units PO 1800 01/17/15 05/11/17 [Vitamin D-3] Losartan [Cozaar] 100 mg PO DAILY 01/17/15 05/11/17 Multivit-Min/FA/Lycopen/Lutein 1 each PO 1800 01/17/15 05/11/17 [Centrum Silver Tablet] Calcium Carbonate [Tums (Calcium 500 mg PO TID PRN 10/13/16 05/11/17 Carbonate 500mg)] Cetirizine HCl 10 mg PO DAILY PRN 10/13/16 05/11/17 Dry Eye Relief Drops 2 drops TOP BID 10/13/16 05/11/17 House Bowel Program 1 tab PO PRN PRN 10/13/16 05/11/17 Pramipexole Di-HCl [Mirapex] 0.25 mg PO QPM 10/13/16 05/11/17 guaiFENesin/DEXTROMETHORPHAN 10 mg PO Q4HR PRN 10/13/16 05/11/17 [Robitussin Dm] Venlafaxine ER [Effexor ER] 37.5 mg PO DAILY 10/21/16 05/11/17 Acetaminophen 1,000 mg PO Q6H PRN MDD 3000mg 01/04/17 05/11/17 Ondansetron [Ondansetron Odt] 4 mg PO Q6HR PRN 05/03/17 05/11/17 - Allergies Allergies/Adverse Reactions: Allergies Allergy/AdvReac Type Severity Reaction Status Date / Time alendronate sodium Allergy Unknown Unknown Verified 06/04/15 22:37 lisinopril Allergy Unknown Unknown Verified 06/04/15 22:36 codeine AdvReac Intermediate Emesis Verified 06/04/15 20:45 Review of Systems - Constitutional Constitutional: reports: Weight loss (152.5 lbs 05/20/17. 153.7 lbs 05/18/17. 154.8 lbs 04/21/17. 164.8 lbs 03/28/17. 159 lbs 02/19/17. 158 lbs 12/25/16.). denies : Poor appetite - Eyes Eyes: reports: Vision loss, Corrective lenses - Ears, Nose & Throat Ears, Nose & Throat: denies: Nasal congestion - Cardiovascular Cardiovascular: reports: Decr. exercise tolerance - Gastrointestinal Gastrointestinal: reports: Constipation, Good appetite - Musculoskeletal Musculoskeletal: reports: Stiffness, Limited range of motion (R shoulder, R lower extremity), Muscle weakness, Transfer issues (dependent on others for transfers) - Integumentary Integumentary: reports: Dryness - Neurological Neurological: reports: General weakness - Psychiatric Psychiatric: reports: Depression. denies: Anxiety, Suicidal, Behavior disturbances - Hematologic/Lymphatic Hematologic/Lymphatic: reports: Recurrent infections (recent novovirus, resolved ) Physical Exam - Vital Signs Temperature: 96.5 F Blood Pressure: 130/85 - Physical Exam General Appearance: positive: No acute distress, Alert Eyes Bilateral: positive: EOMI, No lid inflammation, Conjunctivae nml, No scleral icterus ENT: positive: No signs of dehydration Neck: positive: Trachea midline Cardiovascular: positive: No murmur, Irregularly irregular. negative: Systolic murmur Respiratory: positive: No respiratory distress, Diminished in bases. negative: Wheezes, Rales Abdomen: positive: Non-tender, Soft, Nml bowel sounds Skin: positive: Dryness Extremities: positive: No pedal edema Neurologic/Psychiatric: positive: Oriented x3, Mood/affect nml Palliative Care - POLST Patient has POLST: Yes POLST Status: DNR, Comfort Measures Pain: No pain Tiredness/Fatigue: None Drowsiness/Sedation: None Nausea: None Depression: None Anxiety: None Dyspnea: None Anorexia: None Constipation: Yes - Palliative Care Discussion: Today she reports, "I am ok," and that she has no worries, what is there to worry about? She says the people here are nice and she does really enjoy Marie' s visits. She has seen [place], feels she is nice, and recognizes that it takes time to build a relationship. Impression and Recommendations - Palliative Care Impression: This is an 86-year-old woman with long-standing major depressive disorder and ongoing decline secondary to muscular system atrophy. She continues to exhibit improved mood and emotional stability after her suicide ideation of several weeks ago, and is interactive and positive in her conversation. Recommendations/Counseling Done: Depression: Improved and stable. Continue venlafaxine 37.5mg. Monitor for mood/ behavior changes. Constipation: Start Miralax 17g daily. Multisystem atrophy: Patient did not inquire about her previous request for a referral to a neurologist. Palliative care will facilitate this if the patient decides to pursue this. Advanced care planning: POLST is DNR and comfort. Do not prolong her life, due to her perception of poor quality of life. Patient wants to focus on comfort only, with no intervention if she has an acute illness or would need hospitalization. She has been very consistent in expressing these wishes. Follow up every 4-6 weeks and as needed. Time Spent: 30 minutes were spent with more than 50% of the time spent on counseling, education, and coordination of care.
== END 2017-05-24 15:56 | disposition home or self-care (01) ==
LOC: PC 15:55
PROVIDERS: ATTEND Nurse Practitioner
DX: Z51.5 Encounter for palliative care (principal); F32.9 Major depressive disorder, single episode, unspecified; K59.00 Constipation, unspecified; G13.8 Systemic atrophy primarily affecting central nervous system in other diseases classified elsewhere; M62.81 Muscle weakness (generalized); Z66 Do not resuscitate
CPT/HCPCS: 99309

== ENCOUNTER 2017-05-28 08:00 | Outpatient (CLI) | payer MEDICARE, MEDICAID ==
[2017-05-29] LABS: CALCIUM 8.8 mg/dL (8.5-10.3); CREATININE 1.1 mg/dL (0.4-1.0)
[2017-05-29 00:01] LABS: BASOPHILS # (AUTO) 0.1 10^3/uL (0.0-0.1); BASOPHILS % (AUTO) 1.4 %; EOSINOPHILS # (AUTO) 0.3 10^3/uL (0.0-0.7); EOSINOPHILS % (AUTO) 3.6 %; HGB - HEMOGLOBIN 11.5 g/dL (12.0-16.0); LYMPHOCYTES # (AUTO) 1.2 10^3/uL (1.5-3.5); LYMPHOCYTES % (AUTO) 14.7 %; MEAN CORPUSCULAR HEMOGLOBIN 29.7 pg (27.0-31.0); MEAN CORPUSCULAR HGB CONC 33.6 g/dL (32.0-36.0); MEAN CORPUSCULAR VOLUME 88.4 fL (81.0-99.0); MEAN PLATELET VOLUME 8.2 fL (7.9-10.8); MONOCYTES # (AUTO) 0.6 10^3/uL (0.0-1.0); MONOCYTES % (AUTO) 7.3 %; PLT - PLATELET COUNT 252 10^3/uL (130-450); RED BLOOD COUNT 3.87 10^6/uL (4.20-5.40); RED CELL DISTRIBUTION WIDTH 13.1 % (12.0-15.0); WHITE BLOOD COUNT 8.2 x10^3/uL (4.8-10.8)
== END 2017-05-28 08:01 | disposition home or self-care (01) ==
LOC: LAB.R 08:00
DX: I10 Essential (primary) hypertension (principal); D50.9 Iron deficiency anemia, unspecified
CPT/HCPCS: 80048; 85025

== ENCOUNTER 2017-06-24 10:15 | Outpatient (CLI) | payer MEDICARE, MEDICAID ==
--- NOTE | 2017-06-24 13:11 | CONSULTATION NOTE ---
Palliative Care Follow Up - Referral Referring Provider: Mary Lewis PA-C/Dr. Van Castellanos Time of Visit: 1015-01 Referral setting: [facility] Facility Referral Reason: Depression/MSA - Information Sources Records reviewed: RN notes reviewed, Previous records reviewed History/Review of Systems obtained from: Patient Exam limitations: Clinical condition (some STM/recall issues; A & O x 3;), Language barrier (mild) - History of Present Illness Update Brief HPI Update: This is a minda 87-year-old [place] woman who has multi-system atrophy, major depressive disorder, but is doing fairly well today. She presents with bright affect, engaged in conversation, able to joke, and is able to verbalize things that are bringing her elaine. She continues to in gait with her volunteer Marie, who sees her weekly, the palliative care french weaver, and she does have some staff that she is connected to. Her manager rn case Jessica continues to check in with her on a regular basis as well. 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 She is easily redirected and not perseverative today. Overall she is having increased bilateral shoulder pain, left greater than right , most likely due to the fact she still does not have her electric wheelchair back. She reports it is difficult with transfers, she is only pivoting, she has very little movement in her left on command leg. Her right she is unable to move independently, and is developed a right ankle contracture. She has Voltaren gel applied to her left shoulder 3 times a day, she sees very little results from that, they are using heat with some response. She does use Tylenol as needed, we did discuss scheduling it again. Her biggest complaint today is her cough, it is fairly dry in nature, she does have some nasal congestion, this is intermittent, has been about a week. She has no fever, no chills, no sore throat, and no shortness of breath. Her lungs are clear, and her sats are 96%. I suspect that this point in time, that this is can be attributed to allergies. Had fall in shower, 3/25 reports hit head, small healed scar on left eyebrow. Denies any further sequela or discomfort. Social History - Living Situation Living arrangement: [facility] Support System: Patient is estranged from her daughter, her support is mostly from the palliative care team, as well as her community affairs director. Medications/Allergies - Medications Home Medications: Ambulatory Orders Medication Instructions Recorded Confirmed Cholecalciferol (Vitamin D3) 2,000 units PO 1800 01/17/15 06/24/17 [Vitamin D-3] Losartan [Cozaar] 100 mg PO DAILY 01/17/15 06/24/17 Multivit-Min/FA/Lycopen/Lutein 1 each PO 1800 01/17/15 06/24/17 [Centrum Silver Tablet] Calcium Carbonate [Tums (Calcium 500 mg PO TID PRN 10/13/16 06/24/17 Carbonate 500mg)] Cetirizine HCl 10 mg PO DAILY PRN 10/13/16 06/24/17 Dry Eye Relief Drops 2 drops TOP BID 10/13/16 06/24/17 House Bowel Program 1 tab PO PRN PRN 10/13/16 06/24/17 Pramipexole Di-HCl [Mirapex] 0.25 mg PO QPM 10/13/16 06/24/17 guaiFENesin/DEXTROMETHORPHAN 10 mg PO Q4HR PRN 10/13/16 06/24/17 [Robitussin Dm] Venlafaxine ER [Effexor ER] 37.5 mg PO DAILY 10/21/16 06/24/17 Acetaminophen 1,000 mg PO Q6H PRN MDD 3000mg 01/04/17 06/24/17 Ondansetron [Ondansetron Odt] 4 mg PO Q6HR PRN 05/03/17 06/24/17 Acetaminophen 1,000 mg PO BID MDD NTE 3000 mg 06/24/17 06/24/17 Diclofenac Sodium [Voltaren] 1 applic TOP TID 06/24/17 06/24/17 Diphenhydramine HCl/Zinc Acet 1 applic TOP ACHS 06/24/17 06/24/17 [Benadryl Itch Stopping Crm] Polyethylene Glycol 3350 [Miralax] 17 gm PO DAILY 04/06/18 04/06/18 - Allergies Allergies/Adverse Reactions: Allergies Allergy/AdvReac Type Severity Reaction Status Date / Time alendronate sodium Allergy Unknown Unknown Verified 06/04/15 22:37 lisinopril Allergy Unknown Unknown Verified 06/04/15 22:36 codeine AdvReac Intermediate Emesis Verified 06/04/15 20:45 Review of Systems - Constitutional Constitutional: reports: Weight gain (fairly stabe at 156, a few pounds up) - Eyes Eyes: reports: Vision loss, Corrective lenses - Ears, Nose & Throat Ears, Nose & Throat: reports: Hearing loss, Nasal congestion - Cardiovascular Cardiovascular: denies: Chest pain - Respiratory Respiratory: reports: Cough (dry, nonproductive, fluctuating no worse-maybe some better), SOB with exertion - Gastrointestinal Gastrointestinal: reports: Good appetite. denies: Constipation, Reflux/ heartburn - Genitourinary Genitourinary: reports: Other (patient continent; does have to wait at times for toileting) - Musculoskeletal Musculoskeletal: reports: Muscle aches, Stiffness, Limited range of motion ( bilateral shoulders; aching most likely exacerbated by use of arms with wheelchair at times;), Muscle weakness, Transfer issues (max assist on pivot transfers wheel; able to weight bear), Other (seen by orthopedist; got cortisone injection with out improvement; understands there is no other options unless sees hand surgeon; "will be okay" as is for now) - Integumentary Integumentary: reports: Pruritis (improved), Dryness - Neurological Neurological: reports: General weakness, Memory problems (some STM/not confused) - Psychiatric Psychiatric: reports: Depression (improved; no suicidal ideation; feeling better about "most things") - Endocrine Endocrine: reports: Other (elevated BS on labs 05/28 198) - Hematologic/Lymphatic Hematologic/Lymphatic: reports: Anemia (hg 11.5/HCT 34.2), Other (recovered well from norovirus) - All Other Systems All Other Systems: reports: Reviewed and negative Physical Exam - Vital Signs Temperature: 97.5 C Pulse Rate: 72 Respiratory Rate: 18 O2 Saturation: 96 (ra @ rest) Blood Pressure: 132/62 - Physical Exam General Appearance: positive: No acute distress Eyes Bilateral: positive: Normal inspection ENT: positive: ENT inspection nml, No signs of dehydration Neck: positive: Trachea midline Cardiovascular: positive: Regular rate & rhythm Respiratory: positive: Breath sounds nml, Other (no cough during visit) Abdomen: positive: Soft, Nml bowel sounds Skin: positive: Dryness Extremities: positive: Other (right foot with ankle contracture flexed to midline; unable to straighten; tilts to the right;) Neurologic/Psychiatric: positive: Oriented x3, Mood/affect nml Palliative Care - POLST Patient has POLST: Yes POLST Status: DNR, Comfort Measures Pain: Pain worsening, Location (bilateral shoulder pain; left greater than right ; tender to palpation) Drowsiness/Sedation: Mild (1-3) Nausea: None Depression: Mild (1-3) Anxiety: None Dyspnea: None Anorexia: None Sleep: Sleep improved (RLS doing well; using heat to LE) Constipation: Managed Feelings of wellbeing/Perceived Quality of Life: Good, Acceptable, Improved Performance Status: Patient dependent on staff for showering, she does get showers twice a week. She is much more dependent as she does not have her electric wheelchair, she has to call for assistance for transportation around the facility. Waiting on [employer] company for cotton weigher, she is able to independently feed herself, she does need assistance with toileting. - Palliative Care Discussion: Patient reports she is feeling much brighter, and some overall improvement. She recently had her birthday with much celebration via her volunteer. She actually broached her decision about at the point of time that she gets sick enough, that she may not want to , she may consider as far as weighing benefits and burdens about having treatment versus no treatment. She is feeling much brighter overall. She still does want to be a [employer], but is considering what she calls "just letting God pick her time" when her time is here. She is less anxious to move this process along, and does seem to have settled in and doing much better with her mood. Results - Lab Results Lab results reviewed: Yes Impression and Recommendations - Palliative Care Impression: This is a 89-year-old woman who is doing fairly well compared to her baseline with her depression, she still has multisystem atrophy with slow external decline, she does have an exacerbation in her shoulder pain today. She also presents with symptoms most likely attributed to allergies. Palliative care to continue to follow for symptom management and support regarding goals of care Recommendations/Counseling Done: 1.Shoulder pain. Did schedule acetaminophen 1000 mg a.m. and bedtime, he had decreased a pill burden related to her request, she is willing to try this. She is not getting much relief from the Voltaren gel. 2. Constipation patient is going on a regular basis, has responded to the MiraLAX. 3. Depression patient does continue on been effexor 37.5 mg, she is doing quite well, and seems much more brighter and able to demonstrate improvement on medication. She is receiving support from Palliative care team of volunteer and french weaver, as well as manager rn case. 4. Multisystem atrophy. Patient continues with small changes regarding her strength, and functional ability. She at this point in time is not going to pursue follow-up with neurologist, as there would not be any further intervention. She is receiving support from the PT restorative program. 5. Advanced care planning. SIMBA [facility] is DNR, patient is at this point a little more open to treating appropriately infections, and things that can be reversed. She is not sure if she would accept hospitalization, but is feeling less anxious to move this process along. Time Spent: 45 minutes of getting 50% of this spent in counseling regarding her depression, pain management, and goals of care. Have scheduled another visit in 1 month, if patient continues to improve will spread out visits.
== END 2017-06-24 10:16 | disposition home or self-care (01) ==
LOC: PC 10:15
PROVIDERS: ATTEND Nurse Practitioner Adult Health
DX: Z51.5 Encounter for palliative care (principal); M25.512 Pain in left shoulder; M25.511 Pain in right shoulder; F32.9 Major depressive disorder, single episode, unspecified; G13.8 Systemic atrophy primarily affecting central nervous system in other diseases classified elsewhere; M62.81 Muscle weakness (generalized); Z66 Do not resuscitate
CPT/HCPCS: 99310

== ENCOUNTER 2017-07-22 11:26 | Outpatient (CLI) | payer MEDICARE, MEDICAID ==
--- NOTE | 2017-07-22 11:30 | CONSULTATION NOTE ---
Palliative Care Follow Up - Referral Referring Provider: Dr. Van Castellanos (transitioned from MARILU Lewis) Time of Visit: Referral setting: Nursing Home Facility (Patient in long-term care under Medicaid, she has been there for about 18 months.) Referral Reason: Depression/MSA - Information Sources Records reviewed: RN notes reviewed, Previous records reviewed History/Review of Systems obtained from: Patient, Other (Palliative Care volunteer Siri present for visit) Exam limitations: Clinical condition (Patient with increased short-term memory issues, ruminate and perseverate and caregiving issues. She is hard to redirect ) - History of Present Illness Update Brief HPI Update: This is a minda 87-year-old Azerbaijani woman has multisystem atrophy, major depressive disorder on antidepressants, as well as bilateral shoulder pain. She has been without her electric wheelchair for long extended period, she is feeling much more depressed and distressed by her lack of mobility, needing to call for transportation. She reports her shoulder pain is better controlled on the scheduled acetaminophen 1000 mg twice daily, she has not used any for breakthrough pain. Does appear to get exacerbated by her attempt to wheel herself at times. Patient continues to have perseverative behaviors, does not express any suicidal ideation, she has present her visiting volunteer Siri. She continues to express dislike of being on an antidepressant, spent time revisiting patients behaviors and compromises made around pill burden and agreement to continue medication. Social History - Living Situation Living arrangement: [facility] Support System: Patient is supported weekly by the palliative care volunteer, visited on a regular basis by the palliative care hardware technician, as well as a few scattered friends. She is estranged from her daughter, continues to feel quite isolated. Though she makes choices not to join in activities or position self outside of room. [facility] who advocates and checks on patient regularly. Medications/Allergies - Medications Home Medications: Ambulatory Orders Medication Instructions Recorded Confirmed Cholecalciferol (Vitamin D3) 2,000 units PO 1800 01/17/15 07/22/17 [Vitamin D-3] Losartan [Cozaar] 100 mg PO DAILY 01/17/15 07/22/17 Multivit-Min/FA/Lycopen/Lutein 1 each PO 1800 01/17/15 06/24/17 [Centrum Silver Tablet] Calcium Carbonate [Tums (Calcium 500 mg PO TID PRN 10/13/16 07/22/17 Carbonate 500mg)] Cetirizine HCl 10 mg PO DAILY PRN 10/13/16 07/22/17 Dry Eye Relief Drops 2 drops TOP BID 10/13/16 07/22/17 House Bowel Program 1 tab PO PRN PRN 10/13/16 07/22/17 Pramipexole Di-HCl [Mirapex] 0.25 mg PO QPM 10/13/16 07/22/17 guaiFENesin/DEXTROMETHORPHAN 10 mg PO Q4HR PRN 10/13/16 07/22/17 [Robitussin Dm] Venlafaxine ER [Effexor ER] 37.5 mg PO DAILY 10/21/16 07/22/17 Acetaminophen 1,000 mg PO Q6H PRN MDD 3000mg 01/04/17 07/22/17 Ondansetron [Ondansetron Odt] 4 mg PO Q6HR PRN 05/03/17 07/22/17 Acetaminophen 1,000 mg PO BID MDD NTE 3000 mg 06/24/17 07/22/17 Polyethylene Glycol 3350 [Miralax] 17 gm PO DAILY 06/24/17 07/22/17 - Allergies Allergies/Adverse Reactions: Allergies Allergy/AdvReac Type Severity Reaction Status Date / Time alendronate sodium Allergy Unknown Unknown Verified 06/04/15 22:37 lisinopril Allergy Unknown Unknown Verified 06/04/15 22:36 codeine AdvReac Intermediate Emesis Verified 06/04/15 20:45 Review of Systems - Constitutional Constitutional: reports: Other (doing fairly well overall) - Eyes Eyes: reports: Vision loss, Corrective lenses - Ears, Nose & Throat Ears, Nose & Throat: reports: Hearing loss (mild) - Respiratory Respiratory: reports: SOB with exertion. denies: Cough (resolved), SOB at rest - Gastrointestinal Gastrointestinal: reports: Good appetite. denies: Abdominal pain, Constipation , Nausea, Reflux/heartburn - Genitourinary Genitourinary: reports: Incontinence (occasional only) - Musculoskeletal Musculoskeletal: reports: Muscle aches, Stiffness, Limited range of motion, Muscle weakness, Joint pain (bilateral shoulder left greater than right) - Integumentary Integumentary: reports: Dryness. denies: Rash, Pruritis - Neurological Neurological: reports: General weakness, Headache (patient denies pain at time of visit; reports had some residual headache when had fall in May, refused to go to hospital then wondering about it now; neuro checks intact; no pain currently or changes reviewed would not be of benefit with no residual symptoms) , Memory problems (STM; no confusion) - Psychiatric Psychiatric: reports: Depression (denies depressive feelings or suicidality; continues to have a litany of fairly valid complaints in the context of caregiving;). denies: Anxiety, Delusions, Behavior disturbances - Endocrine Endocrine: reports: Diabetes type 2 - Hematologic/Lymphatic Hematologic/Lymphatic: denies: Recurrent infections - All Other Systems All Other Systems: reports: Reviewed and negative Physical Exam - Vital Signs Temperature: 97.2 C Pulse Rate: 72 Respiratory Rate: 18 O2 Saturation: 96 (ra @ rest) Blood Pressure: 142/92 - Physical Exam General Appearance: positive: No acute distress, Alert Eyes Bilateral: positive: Conjunctivae nml, No scleral icterus ENT: positive: ENT inspection nml, No signs of dehydration Neck: positive: No JVD, Trachea midline Cardiovascular: positive: Regular rate & rhythm Respiratory: positive: Diminished in bases Abdomen: positive: Non-tender, Soft, Nml bowel sounds Skin: positive: Dryness. negative: Rash Extremities: positive: Pedal edema (right greater than left; has brace on right LE) Neurologic/Psychiatric: positive: Oriented x3, Mood/affect nml, Weakness Palliative Care - POLST Patient has POLST: Yes POLST Status: DNR, Comfort Measures Pain: Pain unchanged, Location (bilateral shoulder pain; some discomfort on tailbone) Tiredness/Fatigue: Moderate (4-6) Drowsiness/Sedation: None Nausea: None Depression: Mild (1-3) Anxiety: None Dyspnea: None Anorexia: None Sleep: Sleeps well Constipation: No Performance Status: Patient is dependent for showering, now dependent for transportation as his manual wheelchair. This is quite frustrating for her. She is spending most of time isolated in the room. She can self feed and still swallow without choking. She does take a daytime nap, and is sleeping through the night. - Palliative Care Discussion: Seen with visiting volunteer, continues to express frustration regarding wheelchair, lack of ability to control moblility. Wanted to revisit her "pills" . Patient overall appears to be stable, continues unhappy with her current living situation, but acknowledges very little other options at this point in time. 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 Palliative care team providing support through weekly visiting volunteer, CARDIOLOGY SPECIALIST counseling for depression, and palliative hardware technician visits. Recommendations/Counseling Done: 1.Shoulder pain. Scheduled acetaminophen 1000 mg a.m. and bedtime, reports she has not needed any extra dosing. Continues to have quite a bit of discomfort, but denies pain at rest. 2. Constipation, patient is on a needed house bowel program one time in the last months, does report she is having regular bowel movements appears to be responding the MiraLAX. 3. Depression, patient continues on Effexor 37.5 mg, revisited again patient wants to discontinue, again educated regarding depression, her improvement on the medication, and her agreement to continue as she has had past suicidality. She does have some cognitive decline, and often forgets conversations and agreements, but has agreed to continue at this point in time. She does receive her ongoing counseling and support from other team members as well as her outreach mental health counselor. Reviewed all medications again, with explanations, patient feels like she does not understand what she is taking. We have reviewed this information multiple times, but went through her current medication list to her satisfaction. 4. Multisystem atrophy. Patient continues with small changes regarding his strength, with ongoing decline in functional ability. As she is quite distressed that she is in a manual wheelchair, did follow up regarding repairs for electric wheelchair. They are continue to work on this, I did encourage to be of little bit more focal and find follow-up. With clinical staff requested patient have wheelchair cushion, given her manual wheelchair she is at risk for skin breakdown, and does find it uncomfortable on her tailbone. Unable to examine given her wheelchair bound status, will have them continue to evaluate. She is receiving support from the PT restorative program. Time Spent: 75 minutes was given 50% of this done in counseling regarding depression, grief and loss, coordination of care with staff and follow-up on wheelchair and wheelchair cushion, connection with visiting volunteer, and anticipatory guidance. Follow-up visit scheduled in 6 weeks and put on her calendar for at 10 AM
== END 2017-07-22 11:27 | disposition home or self-care (01) ==
LOC: PC 11:26
PROVIDERS: ATTEND Nurse Practitioner Adult Health
DX: Z51.5 Encounter for palliative care (principal); M25.512 Pain in left shoulder; M25.511 Pain in right shoulder; K59.00 Constipation, unspecified; F32.9 Major depressive disorder, single episode, unspecified; G13.8 Systemic atrophy primarily affecting central nervous system in other diseases classified elsewhere; Z99.3 Dependence on wheelchair; M62.81 Muscle weakness (generalized); E11.9 Type 2 diabetes mellitus without complications; Z66 Do not resuscitate
CPT/HCPCS: 99310

== ENCOUNTER 2017-08-31 10:15 | Outpatient (CLI) | payer MEDICARE, MEDICAID ==
--- NOTE | 2017-08-31 21:38 | CONSULTATION NOTE ---
Palliative Care Follow Up - Referral Referring Provider: Dr. Bill Castellanos Time of Visit: 1015-11 Referral setting: [facility] Facility Referral Reason: Depression - Information Sources Records reviewed: Previous records reviewed History/Review of Systems obtained from: Patient, Caregiver (clinical staff) Exam limitations: Clinical condition (STM issues) Social History - Living Situation Living arrangement: prison Medications/Allergies - Medications Home Medications: Ambulatory Orders Medication Instructions Recorded Confirmed Cholecalciferol (Vitamin D3) 2,000 units PO 1800 01/17/15 09/01/17 [Vitamin D-3] Losartan [Cozaar] 100 mg PO DAILY 01/17/15 09/01/17 Multivit-Min/FA/Lycopen/Lutein 1 each PO 1800 01/17/15 09/01/17 [Centrum Silver Tablet] Calcium Carbonate [Tums (Calcium 500 mg PO TID PRN 10/13/16 09/01/17 Carbonate 500mg)] Cetirizine HCl 10 mg PO DAILY PRN 10/13/16 09/01/17 Dry Eye Relief Drops 2 drops TOP BID 10/13/16 09/01/17 House Bowel Program 1 tab PO PRN PRN 10/13/16 09/01/17 Pramipexole Di-HCl [Mirapex] 0.25 mg PO QPM 10/13/16 09/01/17 guaiFENesin/DEXTROMETHORPHAN 10 mg PO Q4HR PRN 10/13/16 09/01/17 [Robitussin Dm] Venlafaxine ER [Effexor ER] 37.5 mg PO DAILY 10/21/16 09/01/17 Acetaminophen 1,000 mg PO Q6H PRN MDD 3000mg 01/04/17 09/01/17 Ondansetron [Ondansetron Odt] 4 mg PO Q6HR PRN 05/03/17 09/01/17 Acetaminophen 1,000 mg PO BID MDD NTE 3000 mg 06/24/17 09/01/17 Polyethylene Glycol 3350 [Miralax] 17 gm PO DAILY 06/24/17 09/01/17 - Allergies Allergies/Adverse Reactions: Allergies Allergy/AdvReac Type Severity Reaction Status Date / Time alendronate sodium Allergy Unknown Unknown Verified 06/04/15 22:37 lisinopril Allergy Unknown Unknown Verified 06/04/15 22:36 codeine AdvReac Intermediate Emesis Verified 06/04/15 20:45 Review of Systems - Constitutional Constitutional: reports: Weight gain (160) - Eyes Eyes: reports: Vision loss, Corrective lenses - Ears, Nose & Throat Ears, Nose & Throat: reports: Hearing loss (mild) - Cardiovascular Cardiovascular: reports: Edema (occasional LE). denies: Chest pain - Respiratory Respiratory: denies: Cough - Gastrointestinal Gastrointestinal: reports: Good appetite. denies: Constipation - Genitourinary Genitourinary: denies: Incontinence - Musculoskeletal Musculoskeletal: reports: Stiffness, Limited range of motion (shoulders), Muscle weakness, Transfer issues (more difficulty with wt bearing with transfers ; legs weaker and get shakey), Other (repaired electric wheelchair finally after almost a year, has had difficulty managing it with several "incidences", unclear what final plan is going to be regarding this, my understanding is OT is working with her.) - Integumentary Integumentary: reports: Pruritis (improved), Dryness. denies: Rash (resolved) - Neurological Neurological: reports: Memory problems (some STM issues;) - Psychiatric Psychiatric: reports: Depression (currently appears controlled; patient does not perceive being depressed) - Hematologic/Lymphatic Hematologic/Lymphatic: reports: Anemia. denies: Recurrent infections - All Other Systems All Other Systems: reports: Reviewed and negative Physical Exam - Vital Signs Temperature: 97.2 C Pulse Rate: 75 Respiratory Rate: 16 O2 Saturation: 99 (ra @ rest) Blood Pressure: 130/72 - Physical Exam General Appearance: positive: No acute distress, Alert. negative: Anxious Eyes Bilateral: positive: Normal inspection ENT: positive: No signs of dehydration Neck: positive: No JVD, Trachea midline Cardiovascular: positive: Regular rate & rhythm Respiratory: positive: Breath sounds nml Abdomen: positive: Non-tender, Soft, Nml bowel sounds Skin: positive: Dryness Extremities: positive: No pedal edema, Other (right ankle contracture; unable at this time to wear brace; impacts transfers) Neurologic/Psychiatric: positive: Oriented x3, Mood/affect nml, Flat affect Palliative Care - POLST Patient has POLST: Yes POLST Status: DNR, Comfort Measures Pain: Pain unchanged, Location (bilateral shoulder pain; LE pain worsened at night-recently trialed off mirapex, finding sleep more difficult and vics/warm blankets less effective for leg discomfort) Tiredness/Fatigue: Mild (1-3) Drowsiness/Sedation: None Nausea: None Depression: Mild (1-3) (remains perseverative over care issues; but easily redirected and has come to a place of more acceptance in conversation) Anxiety: Mild (1-3) Dyspnea: None Anorexia: None Sleep: Other (loom changer this last week) Constipation: No Feelings of wellbeing/Perceived Quality of Life: Fair, Acceptable, No change Performance Status: Patient is able to self-feed, she is coming out more for activities. Unclear the fate of the electric wheelchair, patient seems unsure of plan as well as staff. Patient is dependent for transfers, currently using pivot disc. She is continent and does need assistance to the bathroom, they are providing bathing as well. - Palliative Care Discussion: Patient reports currently she is actually happy, but continues to find it difficult to communicate with staff. She does continue to feel like it is " hard to live like this", but is exploring possibly relocating to [place]. There is a family that she reports is a "adopted daughter" from a previous pentecostal. She is willing to be her DPOAE, Jessica Hendricks says she has completed the paperwork, and trying to obtain a copy as this is also not in her chart. In follow-up with [facility], she is on list at [facility] care, and aches exploring other options for Medicaid bed. Unclear exactly of the timeline of this, some concern as patient will lose her support here from the palliative care team as well as community outreach. That patient would benefit from consistent advocate , and more frequent visits from this valued relationship it appears. Will reach out when time line known and contact information obtained. Impression and Recommendations - Palliative Care Impression: This is a 87-year-old woman who is somewhat plateaued, she does have multisystem atrophy with slow functional and some mild cognitive decline. Currently her baseline depression is well controlled, as she is looking at changing her social situation. Palliative care team to continue to provide support until transition to new setting. Recommendations/Counseling Done: 1. Depression. Patient continues on Effexor 37.5 mg. Will continue on current medication. She is continue to receive support from other palliative care team members as well as outreach mental health counselor. 2. Shoulder pain, bilateral right greater than left. Continues to have discomfort, denies pain at rest, satisfied with current regimen does not want to add more medications. 3. Insomnia. Patient's perception of trial off of Mirapex that she is not sleeping as well, we did discuss it was not meant to deal with her shaking with her transfers, but her sensation and discomfort of her legs at night. She does use Vicks VapoRub and warm blankets, but has noted less effectiveness, agreed would restart Mirapex and see if improved. 4. Multisystem atrophy. Patient's wheelchair was fixed, patient has had a couple of incidences related to this, unclear if she is going to be able to use this long-term. She is back in her wheelchair again, she had given back the wheelchair cushion, may need to reinstate this. Will leave message for OT what the final plan is. Time Spent: 45 minutes with greater than 50% of this done in counseling regarding depression , coordination of staff with impending move, follow-up regarding electric wheelchair and DPO a paperwork
== END 2017-08-31 10:16 | disposition home or self-care (01) ==
LOC: PC 10:15
PROVIDERS: ATTEND Nurse Practitioner Adult Health
DX: Z51.5 Encounter for palliative care (principal); F32.9 Major depressive disorder, single episode, unspecified; M25.512 Pain in left shoulder; M25.511 Pain in right shoulder; G47.00 Insomnia, unspecified; M62.59 Muscle wasting and atrophy, not elsewhere classified, multiple sites; R53.1 Weakness; H54.7 Unspecified visual loss; H91.90 Unspecified hearing loss, unspecified ear; Z99.3 Dependence on wheelchair; Z66 Do not resuscitate
CPT/HCPCS: 99310

== ENCOUNTER 2017-10-05 09:45 | Outpatient (CLI) | payer MEDICARE, MEDICAID ==
--- NOTE | 2017-10-05 17:18 | CONSULTATION NOTE ---
Palliative Care Follow Up - Referral Referring Provider: Dr. Bill Castellanos Time of Visit: [id number] Referral setting: Detention Facility Referral Reason: Depression/Muscular Atrophy - Information Sources Records reviewed: RN notes reviewed, Previous records reviewed History/Review of Systems obtained from: Patient Exam limitations: No limitations - History of Present Illness Update Brief HPI Update: This is an 87-year-old German woman who has multisystem atrophy, major depressive disorder on antidepressants, as well as bilateral shoulder pain. I have been seeing her for 18 months, she has had progressive decline over this time, no hospitalizations, few infections with most recently a cellulitis of her RLE as a result of a trauma injury. It has healed and responded well to Bactrim. 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 She does remain continent, and able to meet her needs known, she does have some increased short-term memory issues. Her depression has been well controlled on Effexor 37.5 mg, she has been on mirtazapine in the past but disliked the weight gain. She has remained fairly weight neutral at about 148 fluctuating about [address] Her last labs were in May 2017, she does have chronic anemia with a hematocrit that point in time of 34.2 hemoglobin 11.5, she does have compromised kidney status with a BUN of 21 and GFR 47. 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 Today she presents somewhat anxious in anticipation of transitioning to a new setting, she does have a bed in [place] adult family home, is unclear how quickly this transition will happen. Her best friend from [place] who has since past, has a daughter Rosita Sexton [phone], who has been visiting her consistently for several years. She has agreed to be the durable power of health environmental attorney and would like her closer to provide her more support. Patient is both excited and ambiguous as far as leaving behind what support she has, through her leather case finisher Jessica and palliative care volunteer Marie. Social History - Living Situation Living arrangement: [facility] Support System: Patient's community health advocate Jessica Hendricks has been assisting patient with managing affairs, patient also supported by palliative care volunteer Marie. She is estranged from her daughter who she thinks is currently in [place]. Medications/Allergies - Medications Home Medications: Ambulatory Orders Medication Instructions Recorded Confirmed Cholecalciferol (Vitamin D3) 2,000 units PO 1800 01/17/15 10/05/17 [Vitamin D-3] Losartan [Cozaar] 100 mg PO DAILY 01/17/15 10/05/17 Multivit-Min/FA/Lycopen/Lutein 1 each PO 1800 01/17/15 10/05/17 [Centrum Silver Tablet] Calcium Carbonate [Tums (Calcium 500 mg PO TID PRN 10/13/16 10/05/17 Carbonate 500mg)] Cetirizine HCl 10 mg PO DAILY PRN 10/13/16 10/05/17 Dry Eye Relief Drops 2 drops TOP BID 10/13/16 10/05/17 House Bowel Program 1 tab PO PRN PRN 10/13/16 10/05/17 Pramipexole Di-HCl [Mirapex] 0.25 mg PO QPM 10/13/16 10/05/17 guaiFENesin/DEXTROMETHORPHAN 10 ml PO Q4HR PRN 10/13/16 10/05/17 [Robitussin Dm] Venlafaxine ER [Effexor ER] 37.5 mg PO DAILY 10/21/16 10/05/17 Acetaminophen 1,000 mg PO Q6H PRN MDD 3000mg 01/04/17 10/05/17 Ondansetron [Ondansetron Odt] 4 mg PO Q6HR PRN 05/03/17 10/05/17 Acetaminophen 1,000 mg PO BID MDD NTE 3000 mg 06/24/17 10/05/17 Polyethylene Glycol 3350 [Miralax] 17 gm PO DAILY 06/24/17 10/05/17 - Allergies Allergies/Adverse Reactions: Allergies Allergy/AdvReac Type Severity Reaction Status Date / Time alendronate sodium Allergy Unknown Unknown Verified 06/04/15 22:37 lisinopril Allergy Unknown Unknown Verified 06/04/15 22:36 codeine AdvReac Intermediate Emesis Verified 06/04/15 20:45 Review of Systems - Constitutional Constitutional: reports: Fatigue (Patient complains of increasing fatigue, less activity tolerance feeling weaker in her extremities.), Weight stable - Eyes Eyes: reports: Vision loss - Ears, Nose & Throat Ears, Nose & Throat: reports: Hearing loss (mild) - Cardiovascular Cardiovascular: reports: Decr. exercise tolerance - Respiratory Respiratory: reports: SOB with exertion. denies: SOB at rest - Gastrointestinal Gastrointestinal: reports: Good appetite. denies: Constipation, Nausea, Reflux/ heartburn - Genitourinary Genitourinary: denies: Incontinence - Musculoskeletal Musculoskeletal: reports: Stiffness, Muscle weakness, Transfer issues (Patient is a stand and pivot transfer, she has been using her electronic wheelchair and getting around, this does pleaser as it makes her less isolated. She is having some increased difficulty manipulating it, but does feel like she is improving) - Integumentary Integumentary: reports: Dryness - Neurological Neurological: reports: General weakness, Memory problems (mild STM) - Psychiatric Psychiatric: reports: Depression (controlled) - Hematologic/Lymphatic Hematologic/Lymphatic: reports: Anemia (05/28 34.2), Recurrent infections ( recent cellulitis for trauma injury; resolved) - All Other Systems All Other Systems: reports: Reviewed and negative Physical Exam - Vital Signs Temperature: 97.4 C Pulse Rate: 76 Respiratory Rate: 18 O2 Saturation: 96 (ra @ rest) Blood Pressure: 142/80 - Physical Exam General Appearance: positive: No acute distress, Anxious Eyes Bilateral: positive: Normal inspection ENT: positive: No signs of dehydration, Other (few teeth missing) Neck: positive: No JVD, Trachea midline Cardiovascular: positive: Regular rate & rhythm Respiratory: positive: Diminished in bases. negative: Wheezes, Rales, Rhonchi Abdomen: positive: Non-tender, Soft, Nml bowel sounds Skin: positive: Dryness Extremities: positive: Pedal edema (trace pedal edema right greater than left) Neurologic/Psychiatric: positive: Oriented x3, Mood/affect nml, Weakness Palliative Care - POLST Patient has POLST: Yes POLST Status: DNR, Comfort Measures Pain: Pain unchanged, Location (bilat shoulder pain; patient feels controlled on BID APAP) Tiredness/Fatigue: Moderate (4-6) Drowsiness/Sedation: Mild (1-3) Nausea: None Depression: Mild (1-3) Anxiety: Moderate (4-6) Dyspnea: None Anorexia: None Sleep: Sleeps well Constipation: No Feelings of wellbeing/Perceived Quality of Life: Fair, Acceptable, Worsening ( with physical decline and increased dependence) Performance Status: Patient is dependent for all ADLs, transfers to the commode, dressing, and food set up. Patient can feed herself. She is somewhat more independent as far as getting to the dining room as she has her new power chair back. - Palliative Care Discussion: Patient expressing anxiety about pending move, she is looking forward to having Rosita and Ronnie for support, currently they come every other weekend. Rosita will be able to advocate and oversee patient's care at [facility], so this makes patient feel little bit less distressed. Though she does note every time she is transferred, her quality of life or this setting has been less than she has hoped for. She does express sadness about "being dependent on people now", she does have some existential distress why she is still here and her physical decline "I do not know why I became like this". She presents with less depressive statements though overall today. Results - Lab Results Lab results reviewed: Yes Lab and Imaging Results: reviewed may labs, will not repeat Impression and Recommendations - Palliative Care Impression: This is an 87-year-old woman who has multisystem atrophy with slow functional decline, baseline depression is well controlled, she presents with some anxiety over pending transition to a new setting today. Palliative care team has providing support through weekly visiting volunteer, [employer] counseling for depression, and palliative care wrap yarn sorter visits. Recommendations/Counseling Done: 1. Right lower extremity cellulitis related to traumatic injury. Patient has been treated with Bactrim, with good results. Currently issue resolved, does have new brace which she likes better than her other orthotic. 2. Bilateral shoulder pain. Patient scheduled acetaminophen, reports pain regimen currently working. 3. Constipation. Patient continues to have regular bowel movements on MiraLAX , has only needed to initiate bowel program one time this month. 4. Depression. Patient continues on Effexor 37.5 mg. She is doing quite well on this, she dislikes taking medications, but given patient's past severity has agreed to continue on. Patient is also receiving support through her volunteer Marie, her community counselor Jessica, and palliative care wrap yarn sorter visits. 5. Multisystem atrophy. Patient continues to have decline in functional ability, with resulting in increased dependence. She does have her power wheelchair back but has decreased her isolation some, she is still having some difficulty with "driving it", but has it on slow speed. 6. Advanced care planning. Patient has designated Rosita sexton [phone] as her durable power of health environmental attorney, still trying to locate the document to be able to put it in the records and assist with transition. She does have a [facility] form in place, will need to make sure this goes with her as well. Did try and summarize briefly in my note, left message for Rosita with response back in voicemail there is a provider that does visit the adult family home on a regular basis. Will get contact information to transition care. Time Spent: 45 minutes with greater than 50% of this done in counseling regarding depression , pain management, and anxiety as well as coordination of care with other providers and transitioning to new setting
== END 2017-10-05 09:46 | disposition home or self-care (01) ==
LOC: PC 09:45
PROVIDERS: ATTEND Nurse Practitioner Adult Health
DX: Z51.5 Encounter for palliative care (principal); M25.512 Pain in left shoulder; M25.511 Pain in right shoulder; K59.00 Constipation, unspecified; F32.9 Major depressive disorder, single episode, unspecified; M62.59 Muscle wasting and atrophy, not elsewhere classified, multiple sites; G25.81 Restless legs syndrome; M72.0 Palmar fascial fibromatosis [Dupuytren]; D64.9 Anemia, unspecified; N28.9 Disorder of kidney and ureter, unspecified; I10 Essential (primary) hypertension; Z79.899 Other long term (current) drug therapy; Z99.3 Dependence on wheelchair; Z66 Do not resuscitate; Z87.828 Personal history of other (healed) physical injury and trauma
CPT/HCPCS: 99310